=== PATIENT | male | born 1960 | race Caucasian/White ===

== ENCOUNTER → 2023-09-23 09:52 | Outpatient (REF) | payer BC, SELFPAY | LOC: RAD 09:52 | PROVIDERS: ATTENDING PHYSICIAN Family Medicine; FAMILY PHYSICIAN Family Medicine | DX: J18.9 Pneumonia, unspecified organism (principal); R05.1 Acute cough | CPT/HCPCS: 71046 ==

== ENCOUNTER → 2023-09-30 11:14 | Outpatient (REF) | payer BC, SELFPAY | LOC: HWRAD 11:14 | PROVIDERS: ATTENDING PHYSICIAN Family Medicine | DX: R93.89 Abnormal findings on diagnostic imaging of other specified body structures (principal) | CPT/HCPCS: 71260; 74177; Q9967 ==

== ENCOUNTER → 2023-11-04 07:50 | Outpatient (REF) | payer BC, SELFPAY | LOC: HWRCS 07:50 | PROVIDERS: ATTENDING PHYSICIAN Internal Medicine Cardiovascular Disease; FAMILY PHYSICIAN Family Medicine | DX: Z01.810 Encounter for preprocedural cardiovascular examination (principal) | CPT/HCPCS: 93306 ==

== ENCOUNTER → 2023-11-05 12:41 | Outpatient (REF) | payer BC, SELFPAY | LOC: RAD 12:41 | PROVIDERS: ATTENDING PHYSICIAN Surgery Vascular Surgery; FAMILY PHYSICIAN Family Medicine | DX: R29.898 Other symptoms and signs involving the musculoskeletal system (principal) | CPT/HCPCS: 93925 ==

== ENCOUNTER → 2023-11-06 07:27 | Outpatient (REF) | payer BC, SELFPAY | LOC: DHCBC/DCA 07:27 | PROVIDERS: ATTENDING PHYSICIAN Internal Medicine Cardiovascular Disease; FAMILY PHYSICIAN Family Medicine | DX: Z01.810 Encounter for preprocedural cardiovascular examination (principal) | CPT/HCPCS: 78452; 93017; A9500; J2785 ==

== ENCOUNTER 2023-12-03 06:08 | Inpatient (IN) | payer BC, SELFPAY ==
[2023-11-26 09:37] VITALS: BMI 36.9
[2023-11-26 10:03] LABS: % Basophils 1.7 % (0-2); % Eosinophils 3.9 % (0-6); % Immature Granulocytes 0.7 % (0-0.5); % Lymphocytes 20.6 % (20.5-51.1); % Monocytes 13.3 % (1.7-9.3); % Neutrophils 59.8 % (42.2-75.2); Absolute Basophils 0.2 10^3/uL (0-0.2); Absolute Eosinophils 0.4 10^3/uL (0-0.7); Absolute Immature Granulocytes 0.1 10^3/uL (0-0.05); Absolute Lymphocytes 1.9 10^3/uL (1.2-3.4); Absolute Monocytes 1.2 10^3/uL (0.1-0.6); Absolute Neutrophils 5.4 10^3/uL (1.4-6.5); Hematocrit 44.9 % (39.0-52.0); Hemoglobin 14.7 g/dL (13.0-18.0); Mean Corp Hgb Conc. 32.7 g/dL (33.0-37.0); Mean Corpuscular Hgb 27.6 pg (27.0-31.0); Mean Corpuscular Volume 84.4 fL (80.0-94.0); Mean Platelet Volume 9.7 fL (7.4-10.4); Nucleated Red Blood Cells % 0 % (-); Platelet Count 296 10^3/uL (130-400); Red Blood Cell Count 5.32 10^6/uL (4.70-6.10); Red Cell Dist. Width 13.7 % (11.5-14.5)
[2023-11-26 10:17] LABS: INR 1.03; PT 13.5 Sec (11.4-14.6)
[2023-11-26 10:18] LABS: APTT 28.2 Sec (23.4-35.0)
[2023-11-26 10:21] LABS: Blood Urea Nitrogen 22 mg/dl (9-20); Calcium 9.4 mg/dl (8.4-10.2); Carbon Dioxide 25 mmol/L (22-30); Estimated Creatinine Clearance 102 ml/min; Glucose 99 mg/dl (70-99); Potassium 4.3 mmol/L (3.5-5.1); Sodium 143 mmol/L (135-145); eGFR > 60.00
[2023-11-26 10:45] LABS: Chloride 105 mmol/L (98-107)
--- NOTE | 2023-12-02 16:40 | HP.FOC2 ---
Focused History & Physical
Chief Complaint
HPI:
Chief Complaint: Type B aortic dissection
HPI / Indication for Planned Procedure: 63-year-old male here today for planned open AAA repair with Dr. Kumar. Patient has no new symptoms or recent illness since prior office visit. No change in medications.
Relevant Past Medical History: Other (Hypertension)
Relevant Social History: Negative
Relevant Family History: Positive for (Cancer, Parkinson's)
Relevant Past Surgical History: Positive for (Orthopedic surgeries)
Medication
See Medication form for detailed medications: Yes
Medication List (including Herbals & OTC):
amlodipine 10 mg tablet 10 mg PO DAILY 11/24/23
aspirin 81 mg capsule 81 mg PO DAILY 11/24/23
lisinopril 20 mg-hydrochlorothiazide 12.5 mg tablet 1 tab PO BID 11/24/23
Medications Reviewed: Yes
Allergies and Reactions
Patient has Allergies: No
Noted Allergies and Reactions:
Allergy/AdvReac Type Severity Reaction Status Date / Time
No Known Allergies Allergy Verified 11/24/23 11:21
Pertinent Physical Exam
All Other Systems: Negative
Head/Neck: Normal
Lungs: Normal
Heart: Normal
Abdomen: Normal
Extremities: Normal
Neurological: Normal
Diagnosis / Assessment
Thoracoabdominal dissecting aortic aneurysm
Plan / Procedure
Planned open RP repair of AAA with Dr. Kumar
Anesthesia/Sedation to be done by Anesthesia Provider: Yes
[2023-12-03] VITALS (24 sets, daily range): BP systolic 71–141; BP diastolic 48–87
[2023-12-03] MEDS: PERIDEX 0.12% ORAL RINSE 15 ML PO (06:44)
[2023-12-03] MEDS: BACTROBAN NASAL 1 GRAM NASAL (06:44)
[2023-12-03] MEDS: NSS 500 IV ×2 (06:45→15:06)
--- NOTE | 2023-12-03 06:59 | W.SUR.PREOP ---
Pre-Operative Surgical Note
-
I have examined this patient prior to the performance of the scheduled procedure.
The patient's condition is unchanged from the time of the current History and
Physical and the patient is able to undergo the scheduled procedure.
As noted in my outpatient addendum - plan for RP repair abdominal aortic aneurysm (not full extent 3 thoracoabd repair). Discussed with patient on phone prior, and again with patient and his now. Felipe diagrams to facilitate their
understanding. Risks/benefits/alternatives all fully discussed. They understand all and wish to proceed.
[2023-12-03 09:31] LABS: B.E. - POC -0.1 mmol/L; Glucose - POC 152 mg/dl (70-99); HCO3 - POC 26 mmol/L (21-29); Hematocrit - POC 43 % PCV (42-52); Hemodilution- POC No; Hemoglobin Calculated - POC 14.7; Ionized Calcium - POC 1.13 mmol/L (1.12-1.27); O2 Saturation %Calculated-POC 99.3 5 (92-96); PCO2 - POC 46 mmHg (35-45); PO2 - POC 157 mmHg (80-100); Potassium - POC 4.2 mmol/L (3.6-5.0); Sodium - POC 140 mmol/L (135-145); pH - POC 7.36 (7.35-7.45)
[2023-12-03 10:19] LABS: B.E. - POC -0.6 mmol/L; Glucose - POC 189 mg/dl (70-99); HCO3 - POC 24 mmol/L (21-29); Hematocrit - POC 34 % PCV (42-52); Hemodilution- POC Yes; Hemoglobin Calculated - POC 11.5; Ionized Calcium - POC 1.06 mmol/L (1.12-1.27); Lactate - POC 1.47 mmol/L (0.36-0.75); O2 Saturation %Calculated-POC 99.3 5 (92-96); PCO2 - POC 40 mmHg (35-45); PO2 - POC 153 mmHg (80-100); Sodium - POC 132 mmol/L (135-145); pH - POC 7.39 (7.35-7.45)
[2023-12-03 10:53] LABS: B.E. - POC -3.4 mmol/L; Glucose - POC 274 mg/dl (70-99); HCO3 - POC 22 mmol/L (21-29); Hematocrit - POC 29 % PCV (42-52); Hemodilution- POC Yes; Ionized Calcium - POC 0.94 mmol/L (1.12-1.27); Lactate - POC 2.74 mmol/L (0.36-0.75); O2 Saturation %Calculated-POC 98.6 5 (92-96); PCO2 - POC 40 mmHg (35-45); PO2 - POC 123 mmHg (80-100); Potassium - POC 3.5 mmol/L (3.6-5.0); Sodium - POC 135 mmol/L (135-145); pH - POC 7.35 (7.35-7.45)
[2023-12-03 11:22] LABS: B.E. - POC -6.9 mmol/L; Glucose - POC 263 mg/dl (70-99); HCO3 - POC 22 mmol/L (21-29); Hematocrit - POC 38 % PCV (42-52); Hemodilution- POC Yes; Hemoglobin Calculated - POC 13.1; Ionized Calcium - POC 1.32 mmol/L (1.12-1.27); Lactate - POC 5.23 mmol/L (0.36-0.75); O2 Saturation %Calculated-POC 98.4 5 (92-96); PCO2 - POC 56 mmHg (35-45); PO2 - POC 140 mmHg (80-100); Potassium - POC 3.4 mmol/L (3.6-5.0); Sodium - POC 139 mmol/L (135-145)
--- NOTE | 2023-12-03 11:55 | W.SUR.POST ---
Surgical Immediate Post Op
Note
Pre Op Diagnosis: AAA
Post Op Diagnosis: same
Procedure Performed: Open RP AAA repair
Primary Surgeon: José
Secondary Surgeons: Jose De Jesus
Anesthesia: General
Estimated Blood Loss: 600cc
Fluids: see anesthesia flow sheet
Drains/Shunts: none
Specimens/Cultures: aortic thrombus
Doppler/Duplex/Angio (Y/N): Y
Complications: none
Operative Findings: see op note
[2023-12-03 12:01] LABS: B.E. - POC -9.2 mmol/L; Glucose - POC 226 mg/dl (70-99); HCO3 - POC 18 mmol/L (21-29); Hematocrit - POC 35 % PCV (42-52); Hemodilution- POC Yes; Ionized Calcium - POC 1.08 mmol/L (1.12-1.27); Lactate - POC 5.02 mmol/L (0.36-0.75); O2 Saturation %Calculated-POC 99.6 5 (92-96); PCO2 - POC 40 mmHg (35-45); PO2 - POC 216 mmHg (80-100); Potassium - POC 3.5 mmol/L (3.6-5.0); Sodium - POC 135 mmol/L (135-145); pH - POC 7.25 (7.35-7.45)
--- NOTE | 2023-12-03 12:20 | CON.INTV ---
Consultation
Consultation Request
Date/Time Consultation Requested: 12/03/2023 - 114
Date/Time Consultation Performed: 12/03/2023 - 1213
Requesting Provider: CHERYL Cardoza
Performing Provider: Josh Moreira MD
Reason for Consultation: s/p open AAA repair
Medical History
-
Chief Complaint: Elective AAA repair
History of Present Illness:
63-year-old male non-smoker with a past medical history of hypertension and dissecting aortic aneurysm who presents with elective AAA repair. Patient known to vascular surgery with Dr. Kumar with last office visit on 10/14/2023. Patient has a thoracic
abdominal aortic aneurysm in the setting of a chronic type B aortic dissection. Patient has no family history of aneurysms. It measures approximately 6.7 x 6.3 cm. The etiology of his aneurysm is likely related to chronic type B dissection.
Vascular intervention with open repair was discussed including its risks and benefits. Today he underwent open retroperitoneal abdominal aortic aneurysm repair. EBL was 600cc and there was no immediate complications. Patient was transferred to
the ICU postoperatively for further care, and bearing press machine operator services consulted for additional management/recommendations.
When I saw the patient, he was intubated on AC/CMV at 500/16/5/100% with PIP: 34 cmH2O with VTe 492 mL and breathing at 16 breaths/min. Sedated on propofol at 10mcg/kg/min. He was easily arousable, answering questions appropriately by nodding and
was able to lift his head up off the pillow. Heart rate currently 61, BP via arterial catheter line: 107/63 and saturating 100%. He is currently on iker at 60mcg/min as well as vasopressin at 0.03 units/min. He was already weaned off insulin drip.
Patient's , Danita, at bedside and all questions were answered. Of note, patient does not wear CPAP or BiPAP at home.
PMHx: Dissecting aortic aneurysm, hypertension
PSHx: Left knee surgery, right finger crush injury s/p surgical repair, left wrist crush injury s/p surgical repair (at age 11)
Past Medical History
Past Medical History: Other (Above as per HPI)
Past Surgical History: Other (Above as per HPI)
Social History
Tobacco: Non-smoker
Alcohol: None
Drug: None
Family History
Family History: Cancer (Father) and Other (Mother: Alzheimer's dementia/Parkinson disease)
Allergies / Home Medications
Allergies
Allergy/AdvReac Type Severity Reaction Status Date / Time
No Known Allergies Allergy Verified 11/24/23 11:21
Home Medications
�Medication �Instructions �Recorded �Confirmed �Last Taken �Type
amlodipine 10 mg tablet 10 mg PO DAILY 11/24/23 12/03/23 12/03/23 04:00 History
aspirin 81 mg capsule 81 mg PO DAILY 11/24/23 12/03/23 12/02/23 04:00 History
lisinopril 20 1 tab PO BID 11/24/23 12/03/23 12/03/23 04:00 History
mg-hydrochlorothiazide 12.5 mg
tablet
Review of Systems
-
Unable to Obtain full review of systems at this time due to: Patient Intubation
Vitals / Labs / Diagnostic Testing
Vital Signs
Temp Pulse Resp BP Pulse Ox
98.6 F 64 15 141/85 96
12/03/23 06:15 12/03/23 06:15 12/03/23 06:15 12/03/23 06:15 12/03/23 06:15
Diagnostic Testing:
Physical Exam
-
HEENT: Normocephalic, Anicteric and Other (thick neck)
Cardiovascular: S1/S2 and Peripheral Edema (negative)
Respiratory: Wheeze (negative), Rales (negative), Rhonchi (negative), Non-Labored Respirations and Other (Mechanical breath sounds heard bilaterally)
GI: Soft, Distended (Abdominal obesity), Non Tender, Normal Bowel Sounds and Other (Vertical incision covered with tegaderm seen on left side of abdomen)
Neurology: Tremors (negative) and Other (Sedated but easily arousable and answering questions appropriately by nodding)
Skin: Warm and Dry
General: Respiratory Distress (negative), Comfortable, Chills (negative) and Sweats (negative)
Assessment
-
Assessment: 63-year-old male non-smoker with a past medical history of hypertension and dissecting aortic aneurysm who presents with elective AAA repair. Patient known to vascular surgery with Dr. Kumar with last office visit on 10/14/2023. Patient
has a thoracic abdominal aortic aneurysm in the setting of a chronic type B aortic dissection. Patient has no family history of aneurysms. It measures approximately 6.7 x 6.3 cm. The etiology of his aneurysm is likely related to chronic type B
dissection. Vascular intervention with open repair was discussed including its risks and benefits. Today he underwent open retroperitoneal abdominal aortic aneurysm repair. EBL was 600cc and there was no immediate complications. Patient was
transferred to the ICU postoperatively for further care, and bearing press machine operator services consulted for additional management/recommendations.
Chronic conditions HEADLINE WRITER: Dissecting aortic aneurysm, hypertension
Impression:
#Abdominal aortic aneurysm due to chronic type B aortic dissection s/p open retroperitoneal AAA repair (POD #0)
#Shock - likely distributive from sedation
#Leukocytosis � likely reactive
#Metabolic acidosis with normal anion gap
#Hyperglycemia
#History of hypertension
#Abnormal CT chest with patchy opacities in the posterior RUL + posterior LLL with confluent airspace consolidation in the superior LLL
#Obesity
Plan:
Postoperative surgical intensive care unit monitoring
Continue with mechanical ventilation and perform SAT/SBT; if ABG 30 minutes later looks adequate then plan to extubate to nasal cannula
Maintain SpO2 >90-94%
prn nebulized bronchodilators - pt not currently bronchospastic
Once extubated, encourage incentive spirometry use at 10x per hour for at least 4 hrs a day
Aspiration precautions
Pain control
Wean down vasopressors as tolerated to maintain MAP>65
Once iker is <50mcg/min, DC vaso and then continue weaning down iker to off
If having difficulty weaning off pressors, then will start midodrine
Hold home anti-HTN meds for now
Neuro and vascular checks per protocol
Replete electrolytes with K>4, Mg>2
Maintain euglycemia with goal BG 140-180 with ISS moderate resistance q6hr
Vascular surgery following-correspondence and operative notes reviewed
Transfuse blood products as needed to keep Hb>7g/dL, and plt>50k (given post-operative status)
Trend serum HCO3 level and if <15 then start bicarb gtt (sterile water due to hyperglycemia)
DVT prophylaxis
Early nutrition
Early mobilization
Once patient is stabilized, would recommend non-urgent repeat CT chest without contrast to assess for resolution of his patchy opacities + confluent airspace consolidation seen on last CT chest from 09/30/2023
Critical care statement: A total of 44 minutes of critical care time was provided for this patient today. This includes management of unstable vital signs, evaluation of the patient at bedside, reviewing the patient's pertinent medical records
including radiographs, microbiology, laboratory evaluations, and discussion with primary team, consultants, pharmacy, nutrition, physical therapy, case management, charge nurse, critical care nursing, and respiratory therapy.
Data:
CXR 12/03/2023: Low lung volumes. No active pulmonary process.
CT Chest/Abd/Pelvis with IV contrast 09/30/2023:
1. Type B thoracic dissection which extends into the abdominal aorta and the left external iliac artery. There is associated aneurysmal dilatation of the distal descending thoracic aorta, abdominal aorta, and the left common iliac artery. The
abdominal aortic aneurysm measures up to 6.2 cm and the left common iliac aneurysm 5.0 cm. True lumen supplies the renal arteries, SMA, and right iliac artery. False lumen supplies the celiac axis. Both true and false lumen supply the left external
iliac artery.
2. Some patchy opacities within the posterior right upper lobe, sequela represent resolving pneumonia based upon the prior radiograph. Nonspecific confluent focus of airspace consolidation within the superior segment of the left lower lobe
abutting the descending thoracic aorta with increased attenuation.
3. Hepatic steatosis.
4. Fat-containing umbilical hernia.
[2023-12-03] MEDS: NSS 1000 IV ×2 (12:31→19:07)
[2023-12-03 12:42] LABS: Glucose - Point of Care 175 mg/dl (70-99)
[2023-12-03 12:56] LABS: INR 1.23; PT 15.5 Sec (11.4-14.6)
[2023-12-03 12:57] LABS: APTT 23.8 Sec (23.4-35.0); Hematocrit 41.4 % (39.0-52.0); Hemoglobin 13.7 g/dL (13.0-18.0); Mean Corp Hgb Conc. 33.1 g/dL (33.0-37.0); Mean Corpuscular Hgb 28.5 pg (27.0-31.0); Mean Corpuscular Volume 86.3 fL (80.0-94.0); Mean Platelet Volume 9.3 fL (7.4-10.4); Platelet Count 229 10^3/uL (130-400)
[2023-12-03 12:58] LABS: ALT (SGPT) 20 U/L (0-50); AST (SGOT) 21 U/L (17-59); Albumin 2.8 g/dl (3.5-5.0); Alkaline Phosphatase 68 U/L (38-126); Blood Urea Nitrogen 20 mg/dl (9-20); Calcium 7.7 mg/dl (8.4-10.2); Carbon Dioxide 18 mmol/L (22-30); Chloride 103 mmol/L (98-107); Direct Bilirubin 0.2 mg/dl (0.0-0.4); Estimated Creatinine Clearance 115 ml/min; Glucose 189 mg/dl (70-99); Potassium 3.9 mmol/L (3.5-5.1); Sodium 138 mmol/L (135-145); Total Bilirubin 0.4 mg/dl (0.2-1.3); Total Protein 5.2 g/dl (6.3-8.2); eGFR > 60.00
[2023-12-03 13:07] LABS: B.E. -3.9 mmol/L; HCO3 22.2 mmol/L (21-28); O2 Saturation % 99.6 % (94-98); PCO2 43 mmHg (35-48); PO2 134 mmHg (83-108); pH 7.32 (7.35-7.45)
[2023-12-03 13:09] LABS: Troponin I < 0.012 ng/ml
[2023-12-03] MEDS: OFIRMEV 100 IV ×3 (13:24→23:02)
[2023-12-03] MEDS: DIPRIVAN 100 IV (13:30)
[2023-12-03] MEDS: NEO-SYNEPHRINE 250 IV (13:34)
[2023-12-03] MEDS: DILAUDID 0.5 MG IV ×2 (13:45→19:19)
--- NOTE | 2023-12-03 13:45 | PTCARENOTE ---
Rec'd patient as a direct admit from the OR. Patient intubated with #8 ett @ 25 cm. Placed on ventilator by RT. A/C 16/500/5/100%. Pulse ox 99%. Lung sounds diminished throughout. Sedated from OR. Pupils equal and reactive; +2mm. NSR on tele
monitor. +BS (hypo). Left nare [place] sump placed to continuous suction per order. [place] draining clear/yellow urine. 160 cc's/hr. Left lateral abdominal dressing c/d/i. Neurovascular checks checked with QUALITY COMPLIANCE COORDINATOR. +DP and PT doppler pulses bilaterally.
RIJ/Cordis in place. KVO placed through Cordis, NS @ 10 mL/hr. Rec'd patient on Levophed/Vaso/Insulin gtts. Orders clarified with vascular surgery. Insulin gtt stopped. Requesting that Candido be used in placed of Levophed. Candido initiated. Weaning
Levophed as tolerared. Goal SBP 100-165. IVFs initiated as ordered.
--- NOTE | 2023-12-03 14:53 | PTCARENOTE ---
Wean initiated at 1450. Patient nodding head appropriately. MAEx4. NSR on tele monitor. Vitals stable. Currently on Candido and Vaso for BP support. Neurovascular checks unchanged.
[2023-12-03 15:38] LABS: HCO3 22.7 mmol/L (21-28); PCO2 42 mmHg (35-48); PO2 100 mmHg (83-108); pH 7.34 (7.35-7.45)
--- NOTE | 2023-12-03 15:54 | W.PN.UPDATE ---
Update Note
Progress Note Update
Pt tolerated SBT on PS 5, PEEP of 5 on 40% FiO2. Remains awake, alert and following all commands. ABG on PST shows mild metabolic acidosis with pH 7.34, pCO2 42, pO2 100 (SaO2: 99%). Pt extubated to nasal cannula. Will continue to closely
monitor.
--- NOTE | 2023-12-03 15:56 | OR.RPT ---
Operative Report
Operative Report
PROCEDURE DATE: 12/03/2023
Preoperative diagnosis:
1. Chronic type B aortic dissection.
2. Abdominal aortic aneurysm measuring over 6 cm.
3. 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
Postoperative diagnosis: Same
Procedure: Open surgical retroperitoneal repair of abdominal aortic aneurysm with 22 mm x 11 mm bifurcated Hemashield dacron graft.
Surgeon: José
Air Marshal: Lawrence Dela Cruz MD required for all aspects of procedure due to the complexity and anatomic challenges of the case.
Complications: None
Anesthesia: General
Indications for procedure:
Patient with chronic type B aortic dissection with extent 3 thoracoabdominal aortic aneurysm. However, the aneurysmal degeneration in the descending thoracic aorta and aorta in the vicinity of the diaphragm did not meet size criteria for repair.
In addition, there was an infrarenal neck of suitable size proximal to a large abdominal aortic infrarenal aneurysm. In addition the patient had a large over 5 cm left iliac artery aneurysm (common iliac). Based on all this, we felt that he be
higher risk for an extent to or extent 3 thoracoabdominal aortic aneurysm repair, and given the size measurements in the abdominal aorta and left common iliac having reached threshold sizes, we felt that infrarenal abdominal aortic aneurysm repair
was warranted without treating the proximal aorta. Risk/benefits/alternatives were all fully discussed with the patient and his family. They understood all wish to proceed.
Description of procedure:
Patient was identified brought to the operating room placed on the table in supine position. After the placement of invasive lines and catheters, and after adequate administration of anesthesia he was positioned in lateral decubitus position with
right side down. All pressure points were padded including an axillary roll, pillows between his legs. The patient was then prepped and draped in the standard surgical fashion. A standard preoperative timeout was undertaken and everybody was in
agreement the plan. A retroperitoneal type incision was made in the ninth intercostal space extending obliquely towards the midline to the level of the umbilicus but slightly to the left of midline. This was then carried through the skin
subcutaneous tissue with the electrocautery. The external oblique fascia was divided, and muscle fibers were spread in their direction and then the internal oblique was divided. Transversalis fascia was divided and then the peritoneum was exposed.
We began to sweep the peritoneal sac off of the abdominal wall in the proximal aspect of the incision site. Identified a small rent in the peritoneum which was repaired with a [id number] Vicryl suture. We continued to sweep the peritoneum of
the abdominal wall reflecting it medially. We did this until we saw the psoas muscle. Continued our sweeping bluntly of the peritoneum and the kidney was also swept medially and upward. As such the ureter and kidney were all swept together with
the peritoneal sac and reflected medially. The aorta and left common iliac artery were identified. Self-retaining retractor system was now put in place. We then dissected on the lateral and anterior surface of the aorta exposing the infrarenal
aorta. We dissected up to the level of the left renal artery which was carefully identified and circumferentially carefully dissected and a vessel loop passed around it which was double looped but not tightened. We carefully circumferentially
dissected around the aorta at that juncture and identified well posterior from this vantage point the right renal artery. Slightly cephalad to here we could identify the superior mesenteric artery, but we did not feel we needed to circumferentially
dissect this or expose the to any greater detail. There was a suitable infrarenal sewing ring or neck. Therefore we felt that a suprarenal aortic clamp would suffice. Some of the diaphragmatic crural fibers were divided off the aorta to allow
greater exposure cephalad. We then created a clamp zone in the suprarenal segment. The clamp zone was essentially between the right and the left renal artery (cephalad to the left renal artery). We then positioned an aortic clamp in this position
but did not fully clamp. Next, the left common iliac artery was noted to be aneurysmal and was mobilized from the surrounding tissue with combination of sharp and blunt technique. Tissues were inflamed around here and therefore was somewhat
challenging but we are able to do so. The iliac bifurcation on the left side was identified. The external iliac artery was carefully circumferentially dissected and vascular passed around it. The internal iliac artery was also identified and
carefully dissected taking great care to avoid injury to the slightly more posterior and to the right vein. Circumferential dissection was undertaken and Vesseloops passed around it which was double looped with diet tightened. Of note the aneurysm
extended just onto the external iliac artery, and therefore we had decided that we would likely ligate the left internal iliac artery given the depth and difficulty we would have trying to reimplant it. In addition, we would be able to preserve the
right hypogastric artery. At this point we dissected the right common iliac artery. This proved challenging due to the depth and his habitus, as well as the inflammatory nature of the tissues in the setting of an aneurysm. However we were able to
create a clamp zone on either side of the common iliac artery and a hypogastric clamp was positioned there as well. At this point we had proximal and distal control in the aorta. The patient was given an appropriate dose of heparin. Once this had
circulated for 3 minutes the right common iliac artery was clamped and the left external and internal iliac artery double looped Vesseloops were tightened. After confirmation with our anesthesiology colleagues and the administration of mannitol,
the left renal artery vessel loop had been double looped and was now tightened. We then crossclamped the aorta. An aortotomy was made using the electrocautery and this was extended with a heavy scissor to the more normal sized sewing ring we had
in the infrarenal aorta proximally. At this point the aortotomy was teed off. Thrombus was removed. We identified the dissection flap. Because we had clamped suprarenal he intentionally, this gave us a little bit of room to baffle the dissection
flap cephalad. Therefore, at this point we completely transected the aorta within this infrarenal neck. We then baffled the dissection flap. This was done with a scissor creating a V like cut in the chronic septum. Once we did this we had a nice
sewing ring proximally. Distally we open the aorta directly onto the left common iliac aneurysm. Given that the tissue was still aneurysmal at the iliac bifurcation, as noted prior we elected to ligate the internal iliac artery. Therefore we
transected the external iliac artery here. Therefore we would perform a left external iliac artery end-to-end anastomosis. The internal iliac artery was now ligated with heavy silk ties. As far as the right common iliac artery, we identified the
origin at the very end of the aneurysm sac and noted a nice ring (albeit calcified and somewhat diseased) to sew to here. We now used a 22 mm x 11 mm bifurcated Hemashield dacron graft and sewed an end-to-end proximal anastomosis between the
infrarenal aorta and the graft using a running 3-0 Prolene suture. We completed and tied down our suture line. We tested our suture line by administering saline through bulb syringe through the graft limbs. It appeared hemostatic. We therefore
then clamped the graft limbs and then released our proximal aortic clamp. We noted hemostasis along the suture line. There was an area of slightly redundant aortic tissue posteriorly that we thought may leak and therefore a single 3-0 Prolene
[id number] suture was placed to repair that. Now that we had hemostatic proximal suture line, we shifted our iliac limb clamps to the proximal extent of the iliac limbs. Next, we turned our attention to the right iliac anastomosis. The graft
limb was trimmed and beveled and we sewed an anastomosis between the graft limb and the origin of the right common iliac artery (of note we had not transected the common iliac artery off of its origin). This was done with a running 3-0 Prolene
suture. This anastomosis proved to be challenging due to the location and depth of the artery as well as the disease nature of the artery wall (although there was no stenosis). However, we were able to complete and then tie down our suture line
after having backbled the twenty[place]nine [place] artery and flushed out the graft. We then informed anesthesiology colleagues that we would be releasing flow towards the right leg. We then released our hypogastric clamp and then released our graft clamp. Thereby
restoring flow into the right iliac system. There was good pulsatile flow in the right common iliac artery and iliac bifurcation, confirmed with good Doppler signal. We noted hemostasis as well. At this point we turned our attention to the left
iliac anastomosis. The graft was trimmed and slightly beveled and an end-to-end anastomosis was fashioned between the graft limb and the left external iliac artery using a running 3-0 Prolene suture. Prior to completing and tying down our suture
line the [place]nine [place] artery was backbled and the graft limb was flushed out. Heparinized saline was instilled. We completed and tied down our suture line. Next, we informed her anesthesiology colleagues about releasing our left lower extremity graft
by releasing our clamps there. Once they are prepared we unclamped the left external iliac artery clamp and the graft limb clamp. There is excellent pulsatile flow into the left external iliac artery. Doppler again confirmed excellent flow. We
now noted hemostasis at this anastomosis as well. Doppler signal and pulsatile flow was also noted to be good in the left renal artery. At this point we are very satisfied. There was a small bleeding point on the left lateral aortic wall just
cephalad to the site of the clamp placement that have resulted from our dissection, likely a small branch. This was repaired with a 4-0 Prolene [id number] pledgeted suture. Hemostasis was now achieved. Protamine was given to reverse the
heparin, and full hemostasis was noted. At this point we are very satisfied. We irrigated and confirmed again full hemostasis. Next, the space between the ninth and 10th ribs that we had cut through was closed with a Prolene [id number]
suture to reapproximate the ribs. Next, the internal oblique/posterior fascia was closed with running 0 Vicryl suture. Anterior (external oblique) fascial layer was closed then with #1 running PDS suture. Deep dermal layers were closed with
running 2-0 Vicryl suture. Skin clips were applied. The patient tolerated the procedure well. He had palpable bilateral PT pulses upon completion. All sponge, needle, instrument counts were correct upon completion. The patient was transported
to the ICU in stable condition, still intubated with plan to be extubated in the ICU.
--- NOTE | 2023-12-03 16:08 | PTCARENOTE ---
Patient extubated at 1550. Vitals stable. Pulse ox 94% on 4Lnc. Weaning pressors as tolerated. Vaso off. Patient alert and oriented. Pain controlled. Aquacell dressing c/d/i. Neurovascular checks maintained; no changes. at bedside.
[2023-12-03] MEDS: HEPARIN 5000 UNITS SC ×2 (16:36→23:02)
--- NOTE | 2023-12-03 17:00 | PTCARENOTE ---
Around 1630, patient's BP dropped to 70/40's. Candido titrated up without improvement. BP continuing to drop; Vaso placed back on. Currently BP 109/62 on Candido 40, Vaso 0.03.
[2023-12-03] MEDS: NOVOLOG FLEXPEN-MODERATE RESISTANCE 1 UNITS SC (18:02)
[2023-12-03 18:14] LABS: Glucose - Point of Care 155 mg/dl (70-99)
[2023-12-03] MEDS: PITRESSIN 100 IV (19:08)
[2023-12-03 19:44] LABS: Hematocrit 39.2 % (39.0-52.0); Hemoglobin 13.2 g/dL (13.0-18.0)
--- NOTE | 2023-12-03 20:00 | PTCARENOTE ---
resumed care of pt laying in bed AAOx3. Pt reports left flank AAA repair site 7 pain, PRN pain medication administered as ordered. HR in the 70's in NSR with occ. PVC's on the monitor. POX 95% on 4LO2 NC. Pt reports feeling like he has runny
nose, pt assisted to blow nose. Lungs clear. Left nare [place] sump NGT to continuous suction, draining clear brown. + bowel, round obese abd. De La Rosa cath in place draining clear yellow urine. Q1 Neurovascular checks remain WNL. Palpable pulses
confirmed via doppler. Cool pale LE. Right radial A line in place and transduced. Right IJ cordis in place infusing 10ml NSS via cordis, NSS@150ml/hr, Vaso @ 0.03 units/min and Candido @ 20 mcg/min to keep SBP 100-165. Right forearm int, right hand int,
left ac int all capped. Pt repositioned per comfort. Oral care complete. Call choudhary in reach. Will continue to monitor.
[2023-12-03 20:06] LABS: Blood Urea Nitrogen 21 mg/dl (9-20); Calcium 7.8 mg/dl (8.4-10.2); Carbon Dioxide 20 mmol/L (22-30); Chloride 104 mmol/L (98-107); Estimated Creatinine Clearance 115 ml/min; Glucose 169 mg/dl (70-99); Potassium 4.7 mmol/L (3.5-5.1); Sodium 135 mmol/L (135-145); eGFR > 60.00
[2023-12-03 20:12] LABS: Troponin I < 0.012 ng/ml
--- NOTE | 2023-12-03 22:08 | PTCARENOTE ---
Vaso turned off at this time. Will see if pt can tolerate. Current SBP 125. Pt reports pain at tolerable level at this time, resting comfortably. Will continue to monitor.
[2023-12-03] MEDS: NOVOLOG FLEXPEN-MODERATE RESISTANCE SC (23:08)
[2023-12-03 23:18] LABS: Glucose - Point of Care 143 mg/dl (70-99)
[2023-12-04] VITALS (12 sets, daily range): BP systolic 87–130; BP diastolic 50–70; BMI 38.0
--- NOTE | 2023-12-04 | PTCARENOTE ---
Vaso remains off. Candido now infusing @80mcg/min to keep SBP 100-165. Pt repositioned per comfort. Pt offers no complaints at this time. Neurovascular checks remains unchanged as documented. No other changes in assessment noted at this time. Will
continue to monitor.
[2023-12-04] MEDS: NSS 1000 IV ×3 (01:40→15:04)
[2023-12-04] MEDS: DILAUDID 0.5 MG IV ×2 (01:42→15:52)
[2023-12-04] MEDS: NEO-SYNEPHRINE 250 IV (02:54)
[2023-12-04 03:51] LABS: Hematocrit 36.7 % (39.0-52.0); Hemoglobin 12.4 g/dL (13.0-18.0); Mean Corp Hgb Conc. 33.8 g/dL (33.0-37.0); Mean Corpuscular Hgb 28.9 pg (27.0-31.0); Mean Corpuscular Volume 85.5 fL (80.0-94.0); Mean Platelet Volume 9.3 fL (7.4-10.4); Platelet Count 235 10^3/uL (130-400); Red Blood Cell Count 4.29 10^6/uL (4.70-6.10); Red Cell Dist. Width 14.1 % (11.5-14.5); White Blood Cell Count 14.3 10^3/uL (4.8-10.8)
--- NOTE | 2023-12-04 04:00 | PTCARENOTE ---
Pt sleeping comfortably at this time. No changes in assessment noted. AM lab work obtained. Pt repositioned per comfort. Oral care complete. Vital signs stable. Will continue to monitor.
[2023-12-04 04:03] LABS: INR 1.21; PT 15.3 Sec (11.4-14.6)
[2023-12-04 04:04] LABS: APTT 28.8 Sec (23.4-35.0)
[2023-12-04 04:58] LABS: Blood Urea Nitrogen 22 mg/dl (9-20); Calcium 7.5 mg/dl (8.4-10.2); Carbon Dioxide 21 mmol/L (22-30); Chloride 107 mmol/L (98-107); Estimated Creatinine Clearance 115 ml/min; Glucose 124 mg/dl (70-99); Magnesium 1.9 mg/dl (1.6-2.3); Phosphorus 3.4 mg/dl (2.5-4.5); Potassium 4.3 mmol/L (3.5-5.1); Sodium 139 mmol/L (135-145); eGFR > 60.00
[2023-12-04] MEDS: NOVOLOG FLEXPEN-MODERATE RESISTANCE SC (05:27)
[2023-12-04] MEDS: OFIRMEV 100 IV (05:29)
[2023-12-04 05:39] LABS: Glucose - Point of Care 126 mg/dl (70-99)
--- NOTE | 2023-12-04 07:27 | PTCARENOTE ---
Rec'd care of patient at 0700. Patient alert and oriented. MAEx4. Only complaint is throat soreness from previously being intubated. NSR with pvcs on tele monitor. Candido and IVFs infusing through RIJ. KVO infusing via Cordis. Pulse ox 96% on 4Lnc.
+BS. Soft/tender abdomen. Abdominal dressing intact with small old drainage. East in place for critical I/O. Vascular surgery team at bedside. NGT removed. Plan to get patient oob to chair. Maintain maikel and east until pressors weaned off.
[2023-12-04 07:38] LABS: Glycohemoglobin (HgbA1c) 5.7 % (4.0-5.6)
--- NOTE | 2023-12-04 07:41 | W.PN.ANS.POP ---
Anesthesia Post Operative
- Anesthesia Post Op Note
Vital Signs Stable-See Nursing Note: Yes
Airway Patent: Yes
Adequate Pain Control: Yes
Change in Mental Status: No
Current Postoperative Nausea & Vomiting: No
Anesthesia Complications: No
General Anesthetic Recall: No
Unplanned Admission: No
Post Op Hydration Adequate: Yes
[2023-12-04] MEDS: MIRALAX TUBE (07:46)
--- NOTE | 2023-12-04 08:03 | W.PN.INTV ---
Today's Communication / Plan
Recommendations
Up OOB as tolerated
Maintain SpO2 >90-94%
Encourage incentive parameter use
Patient just weaned off of vasopressors this morning, continue to monitor hemodynamics closely and hold home antihypertensives
Continue with ICU level of care - defer downgrade to vascular surgery. Vessel Ordinary Seaman/Pulmonary service will continue to follow along while he remains in the ICU; once downgraded then we will sign off at that time.
Assessment
-
Assessment: 63-year-old male non-smoker with a past medical history of hypertension and dissecting aortic aneurysm who presents with elective AAA repair. Patient known to vascular surgery with Dr. Kumar with last office visit on 10/14/2023. Patient
has a thoracic abdominal aortic aneurysm in the setting of a chronic type B aortic dissection. Patient has no family history of aneurysms. It measures approximately 6.7 x 6.3 cm. The etiology of his aneurysm is likely related to chronic type B
dissection. Vascular intervention with open repair was discussed including its risks and benefits. Today he underwent open retroperitoneal abdominal aortic aneurysm repair. EBL was 600cc and there was no immediate complications. Patient was
transferred to the ICU postoperatively for further care, and quilt sewer services consulted for additional management/recommendations.
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
Impression:
#Abdominal aortic aneurysm due to chronic type B aortic dissection s/p open retroperitoneal AAA repair (POD #1)
#Shock - likely distributive from sedation - shock state now resolved
#Leukocytosis � likely reactive
#Metabolic acidosis with normal anion gap - now resolved
#Hyperglycemia - resolved
#History of hypertension
#Abnormal CT chest with patchy opacities in the posterior RUL + posterior LLL with confluent airspace consolidation in the superior LLL
#Obesity
Plan:
Postoperative surgical intensive care unit monitoring
Patient was successfully extubated to nasal cannula on 12/03/2023
Maintain SpO2 >90-94%
prn nebulized bronchodilators - pt not currently bronchospastic
Encourage incentive spirometry use at 10x per hour for at least 4 hrs a day
Aspiration precautions
Pain control
Vasopressors have now been weaned off as of this morning; maintain MAP>65
Hold home anti-HTN meds for now
Neuro and vascular checks per protocol
Replete electrolytes with K>4, Mg>2
Maintain euglycemia with goal BG 140-180
Vascular surgery following-correspondence and operative notes reviewed
Transfuse blood products as needed to keep Hb>7g/dL, and plt>50k (given post-operative status)
Trend serum HCO3 level
DVT prophylaxis
Early nutrition
Early mobilization
Recommend non-urgent repeat CT chest without contrast to assess for resolution of his patchy opacities + confluent airspace consolidation seen on last CT chest from 09/30/2023
Continue with ICU level of care given he was just weaned off of vasopressors. Defer downgrade to telemetry to vascular surgery. Vessel Ordinary Seaman/Pulmonary service will continue to follow along while he remains in the ICU.
Critical care statement: A total of 43 minutes of critical care time was provided for this patient today. This includes management of unstable vital signs, evaluation of the patient at bedside, reviewing the patient's pertinent medical records
including radiographs, microbiology, laboratory evaluations, and discussion with primary team, consultants, pharmacy, nutrition, physical therapy, case management, charge nurse, critical care nursing, and respiratory therapy.
Data:
CXR 12/03/2023: Low lung volumes. No active pulmonary process.
CT Chest/Abd/Pelvis with IV contrast 09/30/2023:
1. Type B thoracic dissection which extends into the abdominal aorta and the left external iliac artery. There is associated aneurysmal dilatation of the distal descending thoracic aorta, abdominal aorta, and the left common iliac artery. The
abdominal aortic aneurysm measures up to 6.2 cm and the left common iliac aneurysm 5.0 cm. True lumen supplies the renal arteries, SMA, and right iliac artery. False lumen supplies the celiac axis. Both true and false lumen supply the left external
iliac artery.
2. Some patchy opacities within the posterior right upper lobe, sequela represent resolving pneumonia based upon the prior radiograph. Nonspecific confluent focus of airspace consolidation within the superior segment of the left lower lobe
abutting the descending thoracic aorta with increased attenuation.
3. Hepatic steatosis.
4. Fat-containing umbilical hernia.
Subjective Dataa
Subjective Data
Date of Service:
Date of Service: December 04, 2023
Chief Complaint: Vessel Ordinary Seaman Follow Up
Subjective:
Patient seen and evaluated this morning. Neosynephrine gtt turned off at 10:10 AM. Vasopressin has been off since yesterday at 10 PM. He is sitting in the chair and of chest. Heart rate 85, saturating 88% on 2 L/min, and BP 120/73. He has no
complaints. Right IJ cordis in place. He denies chest pain, SOB, headache, nausea, fevers or chills.
Review of Systems
General: Other (Negative unless mentioned above)
Objective Data
Data Reviewed
Vital Signs / I&O / Oxygen:
Vital Signs
Temp Pulse Resp BP Pulse Ox
98.8 F 77 23 125/57 93
12/04/23 07:50 12/04/23 09:00 12/04/23 09:00 12/04/23 08:00 12/04/23 09:00
Intake and Output
12/03/23 12/04/23 12/05/23
06:59 06:59 06:59
Intake Total 3773.0 / 3957.0 546 / 546
Output Total 2085 / 2130 215 / 215
Balance 1688.0 / 1827.0 331 / 331
SaO2 [A/C] 100
SaO2 93
Nasal Cannula flow liters per 2
minute
Physical Exam
General: Respiratory Distress (negative), Comfortable, Chills (negative) and Sweats (negative)
HEENT: Normocephalic, Anicteric, Other (thick neck) and Other (R-IJ cordis in place)
Cardiovascular: S1-S2 and Peripheral Edema (negative)
Respiratory: Wheeze (negative), Crackles (negative), Rhonchi (negative) and Non-Labored Respirations
GI: Soft, Distended (abdominal obesity), Non Tender and Normal Bowel Sounds
Neurology: AO x 3 and Tremors (negative)
Skin: Warm, Dry, Cyanosis (negative) and Jaundice (negative)
Labs/Micro/Reports
Lab Data
12/04/23 03:44
12/04/23 03:44
Laboratory Results
12/03/23 12/03/23 12/03/23
12:38 12:55 15:24
PT 15.5 H
INR 1.23
APTT 23.8
pH 7.32 L 7.34 L
pCO2 43 42
pO2 134 H 100
HCO3 22.2 22.7
O2 Delivery Level
12/04/23
03:44
PT 15.3 H
INR 1.21
APTT 28.8
pH
pCO2
pO2
HCO3
O2 Delivery Level
--- NOTE | 2023-12-04 08:04 | W.PN.VS ---
Addendum entered and electronically signed by Fady Kumar MD 12/04/23 10:27:
Seen and examined with CHARLIE Mancia and CHARLIE Marie. Agree with findings as noted below. Seen earlier this a.m., this is a late entry. Patient was doing very well. He is without actually significant complaints. No significant abdominal pain. His only
complaint was slight throat discomfort from the prior ET tube. No nausea. Vitals and intake/outtake all reviewed. Good urine output, minimal NG tube drainage. On his exam his abdomen is soft, nondistended, nontender. The left flank dressing
clean dry and intact. No hematoma noted. Feet are both pink and warm with easily palpable 2+ PT pulses. Labs all reviewed. Plan/NG tube discontinued on rounds by us. Wean pressors to off. Remove arterial line once pressors off. Continue
n.p.o. and fluids for now. Okay for ice chips. Will reassess later today regarding possible advancing diet and removal of De La Rosa catheter. Out of bed to chair.
Original Note:
Today's Communication / Plan
-
Seen and assessed with Dr. Kumar
Assessment/Plan
-
POD #1 Open surgical retroperitoneal repair of abdominal aortic aneurysm with 22 mm x 11 mm bifurcated Hemashield dacron graft.
Plan:
-Out of bed to chair
-NG tube DC'd
-Ice chips, if tolerates this could increase to clears later
-Wean candido
-Keep De La Rosa and Cordis for today
-Continue IV fluids at 150
-Remain in ICU today
Subjective Data
-
Date of Service: December 04, 2023
Patient seen at bedside this a.m. with Dr. Kumar. Doing well overall patient denies pain at the surgical site. Only complaint is a sore throat. NG tube put out less than 100, DC'd tube at bedside. Candido infusing
Objective Data
-
Vital Signs
Temp Pulse Resp BP Pulse Ox
98.8 F 70 19 118/61 96
12/04/23 07:50 12/04/23 07:30 12/04/23 07:30 12/04/23 06:00 12/04/23 07:30
Intake and Output
12/03/23 12/04/23 12/05/23
06:59 06:59 06:59
Intake Total 3773.0 / 3957.0 184 184
Output Total 2084 / 2130
Balance 1688.0 / 1827.0 139 / 139
Intake:
IV fluids (Total) 3473.0 / 3657.0
Cordis 170 / 180
Candido 294 / 318
Norepinephrine 71.4 / 71.4
Nss 1,000 ml @ 150 mls/hr IV . 2850 / 3000 150 / 150
[id number] [facility] Rx#:[id number]
Propofol 6.6 / 6.6
Vasopressin 81 / 81
IV piggybacks 300 / 300
Amount instilled into GI Tube ( 0 / 0
Total)
[place] Sump 0 / 0
Output:
Gastrointestinal tube output ( 100 / 100
Total)
[place] Sump 100 / 100
Urine, De La Rosa 1984
Lab Results
12/04/23 03:44
12/04/23 03:44
Calcium 7.5 mg/dl (8.4-10.2) L 12/04/23 03:44
Phosphorus 3.4 mg/dl (2.5-4.5) 12/04/23 03:44
Magnesium 1.9 mg/dl (1.6-2.3) 12/04/23 03:44
Total Bilirubin 0.4 mg/dl (0.2-1.3) 12/03/23 12:38
Direct Bilirubin 0.2 mg/dl (0.0-0.4) 12/03/23 12:38
AST 21 U/L (17-59) 12/03/23 12:38
ALT 20 U/L (0-50) 12/03/23 12:38
Alkaline Phosphatase 68 U/L (38-126) 12/03/23 12:38
Total Protein 5.2 g/dl (6.3-8.2) L 12/03/23 12:38
Albumin 2.8 g/dl (3.5-5.0) L 12/03/23 12:38
Physical Exam
-
AAOx3
No tachypnea on 2 L nasal cannula
No tachycardia
Cordis site clean dry and intact
Abdomen soft, nontender
Surgical site dressing clean, dry, intact. No drainage noted. No ecchymosis
Bilateral feet warm, pink
[2023-12-04] MEDS: HEPARIN 5000 UNITS SC ×3 (08:36→23:29)
--- NOTE | 2023-12-04 09:06 | PTCARENOTE ---
Patient assisted oob to chair. Resting comfortably. Vitals stable. Weaning Candido as tolerated.
[2023-12-04] MEDS: DILAUDID 0.25 MG IV (09:19)
--- NOTE | 2023-12-04 10:43 | PTCARENOTE ---
Candido weaned off at 1010. Vitals stable.
--- NOTE | 2023-12-04 12:14 | PTCARENOTE ---
Addendum entered by Shantell De Souza RN 12/04/23 12:29:
Order for 500 cc bolus obtained.
Original Note:
Around 1205, patient assisted in repositioning from laying in chair to sitting up. BP dropped to 80/50's. Quick to recover. BP currently 120/70's. Urine output noted to be decreasing over the past couple hours. Roughly 25-30 cc's/hr. Vascular
surgery ICE SKATING TEACHER notified. No other changes.
[2023-12-04] MEDS: NSS 500 IV ×2 (12:31→23:28)
--- NOTE | 2023-12-04 13:23 | PTCARENOTE ---
Patient assisted back to bed. Tolerated 4.5 hours in chair.
--- NOTE | 2023-12-04 13:34 | PTCARENOTE ---
Attempted to wean to RA. Pulse ox down to 89%. Placed back on 2L nc. IS provided. Educated on proper use.
--- NOTE | 2023-12-04 15:29 | CM ---
CM met with patient in room. Patient confirmed demographics. Patient lives independently with . Patient had a history of VN (many years ago). Patient denies history of SNF.
Patient is active with his PCP. Patient uses [facility] for medication services.
--- NOTE | 2023-12-04 16:06 | PTCARENOTE ---
Urine output increased post 500 cc bolus. 50-75 cc's an hour. Vitals remain stable. Patient tolerating ice chips. No other changes in assessment.
--- NOTE | 2023-12-04 20:30 | PTCARENOTE ---
Resumed care of pt this evening. Received pt on IV fluids infusing via rt IJ central line w/ cordis in place. Pt is A&Ox3, can move all 4 extremities, and can make needs known. Pt is in NSR w/ PVCs on tele monitor, has trace GA edema, and palpable
pedal pulses bilaterally. Pt on 2L of O2 satting at 95% pulse ox. Pt's respirations are shallow. On auscultation pt lungs sound diminished at the bases bilaterally w/ an expiratory wheeze. Pt's abdomen is round, obese, and tender. BS are hypoactive.
De La Rosa cath in place draining negro colored urine. Pt's left abdominal surgical aquacell dressing is intact w/ small amount of old drainage noted.
[2023-12-04] MEDS: MORPHINE SULFATE 4 MG IV (20:43)
--- NOTE | 2023-12-04 23:00 | PTCARENOTE ---
This RN administered morphine dose for 7 out of 10 pain at surgical site per order.
[2023-12-05] VITALS (15 sets, daily range): BP systolic 104–154; BP diastolic 53–94; PULSE 98; O2SAT 92; BMI 38.8
--- NOTE | 2023-12-05 02:00 | PTCARENOTE ---
Upon reassessment, post pain assessment, pt resting comfortably.
[2023-12-05] MEDS: NSS 1000 IV (02:14)
[2023-12-05] MEDS: MORPHINE SULFATE 4 MG IV (04:48)
[2023-12-05 05:25] LABS: Hematocrit 32.5 % (39.0-52.0); Hemoglobin 10.8 g/dL (13.0-18.0); Mean Corp Hgb Conc. 33.2 g/dL (33.0-37.0); Mean Corpuscular Hgb 28.9 pg (27.0-31.0); Mean Corpuscular Volume 86.9 fL (80.0-94.0); Mean Platelet Volume 9.6 fL (7.4-10.4); Platelet Count 188 10^3/uL (130-400); Red Blood Cell Count 3.74 10^6/uL (4.70-6.10); Red Cell Dist. Width 14.1 % (11.5-14.5); White Blood Cell Count 13.2 10^3/uL (4.8-10.8)
[2023-12-05 05:47] LABS: Blood Urea Nitrogen 21 mg/dl (9-20); Calcium 7.3 mg/dl (8.4-10.2); Carbon Dioxide 23 mmol/L (22-30); Chloride 106 mmol/L (98-107); Estimated Creatinine Clearance > 125 ml/min; Glucose 109 mg/dl (70-99); Potassium 3.9 mmol/L (3.5-5.1); Sodium 139 mmol/L (135-145); eGFR > 60.00
--- NOTE | 2023-12-05 08:02 | W.PN.INTV ---
Today's Communication / Plan
Recommendations
Up OOB as tolerated
Maintain SpO2 >90-94%
Encourage incentive spirometer use
Check procal in AM and if >0.5 then start ABx
PT/OT
Continue with ICU level of care - defer downgrade to vascular surgery. Social Services Director/Pulmonary service will continue to follow along while he remains in the ICU; once downgraded then we will sign off at that time.
Assessment
-
Assessment: 63-year-old male non-smoker with a past medical history of hypertension and dissecting aortic aneurysm who presents with elective AAA repair. Patient known to vascular surgery with Dr. Kumar with last office visit on 10/14/2023. Patient
has a thoracic abdominal aortic aneurysm in the setting of a chronic type B aortic dissection. Patient has no family history of aneurysms. It measures approximately 6.7 x 6.3 cm. The etiology of his aneurysm is likely related to chronic type B
dissection. Vascular intervention with open repair was discussed including its risks and benefits. Today he underwent open retroperitoneal abdominal aortic aneurysm repair. EBL was 600cc and there was no immediate complications. Patient was
transferred to the ICU postoperatively for further care, and level vial curvature gauger services consulted for additional management/recommendations.
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
Impression:
#Abdominal aortic aneurysm due to chronic type B aortic dissection s/p open retroperitoneal AAA repair (POD #2)
#Shock - likely distributive from sedation - shock state now resolved
#Leukocytosis � likely reactive
#Metabolic acidosis with normal anion gap - now resolved
#Hyperglycemia - resolved
#History of hypertension
#Abnormal CT chest with patchy opacities in the posterior RUL + posterior LLL with confluent airspace consolidation in the superior LLL
#Obesity
Plan:
Postoperative surgical intensive care unit monitoring
Patient was successfully extubated to nasal cannula on 12/03/2023
Maintain SpO2 >90-94%
prn nebulized bronchodilators - pt not currently bronchospastic
Encourage incentive spirometry use at 10x per hour for at least 4 hrs a day
Aspiration precautions
Pain control
Vasopressors have now been weaned off as of AM of 12/04/2023; maintain MAP>65
Resume anti-HTN meds and stagger to avoid hypotension
Given the retrocardiac opacification seen on CXR today, encourage patient to get up OOB and encourage incentive spirometer use. Given his leukocytosis, check procalcitonin and if >0.5 and start antibiotics
- Of note, he clinically has no signs of pneumonia with no sputum production, cough or SOB
Neuro and vascular checks per protocol
Replete electrolytes with K>4, Mg>2
Maintain euglycemia with goal BG 140-180
Vascular surgery following-correspondence and operative notes reviewed
Transfuse blood products as needed to keep Hb>7g/dL, and plt>50k (given post-operative status)
DVT prophylaxis
Early nutrition
Early mobilization
Recommend non-urgent repeat CT chest without contrast to assess for resolution of his patchy opacities + confluent airspace consolidation seen on last CT chest from 09/30/2023
Continue with ICU level of care given he was just weaned off of vasopressors. Defer downgrade to telemetry to vascular surgery. Social Services Director/Pulmonary service will continue to follow along while he remains in the ICU.
Total time spent today was 75 minutes for this encounter. Time includes reviewing laboratory test/imaging results, reviewing pertinent medical records, obtaining and reviewing medical history, performing an appropriate exam, ordering medications,
tests and procedures. Time also includes documentation of this encounter, coordinating patient care and communicating with other healthcare professionals. Total time does not include separately billed tests performed on this date of service.
Data:
CXR 12/03/2023: Low lung volumes. No active pulmonary process.
CXR 12/05/2023:
1. Bibasilar linear opacities, most suggestive of subsegmental atelectasis.
2. Haziness of the left hemidiaphragm, likely reflective of left lower lobe airspace disease and/or small left pleural effusion. Consider PA and lateral views when possible.
3. Mild cardiomegaly.
CT Chest/Abd/Pelvis with IV contrast 09/30/2023:
1. Type B thoracic dissection which extends into the abdominal aorta and the left external iliac artery. There is associated aneurysmal dilatation of the distal descending thoracic aorta, abdominal aorta, and the left common iliac artery. The
abdominal aortic aneurysm measures up to 6.2 cm and the left common iliac aneurysm 5.0 cm. True lumen supplies the renal arteries, SMA, and right iliac artery. False lumen supplies the celiac axis. Both true and false lumen supply the left external
iliac artery.
2. Some patchy opacities within the posterior right upper lobe, sequela represent resolving pneumonia based upon the prior radiograph. Nonspecific confluent focus of airspace consolidation within the superior segment of the left lower lobe
abutting the descending thoracic aorta with increased attenuation.
3. Hepatic steatosis.
4. Fat-containing umbilical hernia.
Subjective Dataa
Subjective Data
Date of Service:
Date of Service: December 05, 2023
Chief Complaint: Social Services Director Follow Up
Subjective:
Patient seen and evaluated this morning. No acute events reported overnight. Heart rate 79, BP 126/77 and saturating 94% on 2 L/min. He has minimal complaints, denying SOB, cough, chest pain, abdominal pain, nausea, fevers or chills. Afebrile
overnight.
Review of Systems
General: Other (Negative unless mentioned above)
Objective Data
Data Reviewed
Vital Signs / I&O / Oxygen:
Vital Signs
Temp Pulse Resp BP Pulse Ox
99.8 F 83 21 125/63 94
12/05/23 08:15 12/05/23 08:00 12/05/23 08:00 12/05/23 08:00 12/05/23 08:00
Intake and Output
12/04/23 12/05/23 12/06/23
06:59 06:59 06:59
Intake Total 3773.0 / 3957.0 4652 / 4742 180 / 180
Output Total 2084 / 2129 1187 / 1187
Balance 1688.0 / 1827.0 3465 / 3555 180 / 180
SaO2 [A/C] 100
SaO2 94
Nasal Cannula flow liters per 2
minute
Physical Exam
General: Respiratory Distress (negative), Comfortable, Chills (negative) and Sweats (negative)
HEENT: Normocephalic, Anicteric and Other (thick neck)
Cardiovascular: S1-S2 and Peripheral Edema (negative)
Respiratory: Wheeze (negative), Crackles (negative), Rhonchi (negative) and Non-Labored Respirations
GI: Soft, Distended (abdominal obesity), Non Tender and Normal Bowel Sounds
Neurology: AO x 3 and Tremors (negative)
Skin: Warm, Dry, Cyanosis (negative) and Jaundice (negative)
Labs/Micro/Reports
Lab Data
12/05/23 05:03
12/05/23 05:03
[2023-12-05] MEDS: HEPARIN 5000 UNITS SC ×3 (08:05→22:40)
--- NOTE | 2023-12-05 08:17 | W.PN.VS ---
Addendum entered and electronically signed by Michael De La Rosa III, MD 12/05/23 15:03:
This patient was seen and examined with CHERYL Goyal. I agree with the history and physical exam as well as the assessment and plan.
Signed:
Michael De La Rosa III, MD
[facility] Vascular Surgery
[phone] (mgxn)
Original Note:
Today's Communication / Plan
-
See below.
Assessment/Plan
-
POD #2 Open surgical retroperitoneal repair of abdominal aortic aneurysm with 22 mm x 11 mm bifurcated Hemashield dacron graft.
Plan:
-Out of bed to chair with continued progression of ambulation as tolerated
-Discontinue IV fluids
-Advance diet to regular
-Physical therapy eval and treatment
-Given positive fluids of roughly 3 L per LUCIANO documentation and bilateral lower extremity edema we will give 20 mg IV Lasix dosing
- Discontinue De La Rosa catheter
- Discontinue Cordis
-Patient currently tolerating p.o. intake will transition pain medication from IV to p.o.
-Continue to encourage incentive spirometry
Subjective Data
-
Date of Service: December 05, 2023
Patient seen and examined at bedside, reports continued adequate postoperative pain management. Denies nausea, vomiting, fever, and chills. Reports tolerating clear liquid diet and passing flatus.
Objective Data
-
Vital Signs
Temp Pulse Resp BP Pulse Ox
99.8 F 80 20 110/53 94
12/05/23 08:15 12/05/23 06:15 12/05/23 06:15 12/05/23 06:00 12/05/23 06:15
Intake and Output
12/04/23 12/05/23 12/06/23
06:59 06:59 06:59
Intake Total 3773.0 / 3957.0 7362 / 7342 180 / 180
Output Total 2084 / 0 1187 / 1187
Balance 1688.0 / 1827.0 3465 / 3555 180 / 180
Intake:
Oral fluids 1080 / 1080
IV fluids (Total) 3473.0 / 3657.0 3572 / 3662 180 / 180
BOLUS 500 / 500
Cordis 170 / 180 240 / 250 20 / 20
Candido 294 / 318 72 / 72
Norepinephrine 71.4 / 71.4
Nss 1,000 ml @ 150 mls/hr IV . 2850 / 3000 1800 / 1800
Q6H40M [facility]IR Rx#:[id number]
Nss 1,000 ml @ 80 mls/hr IV . 960 / 1040 160 / 160
[id number] EMIR Rx#:[id number]
Propofol 6.6 / 6.6
Vasopressin 81 / 81
IV piggybacks 300 / 300
Amount instilled into GI Tube ( 0 / 0
Total)
[place] S[place] 0 / 0
Output:
Gastrointestinal tube output ( 100 / 100
Total)
[place] Sump 100 / 100
Urine, De La Rosa 1983 1187
Lab Results
12/05/23 05:03
12/05/23 05:03
Calcium 7.3 mg/dl (8.4-10.2) L 12/05/23 05:03
Phosphorus 3.4 mg/dl (2.5-4.5) 12/04/23 03:44
Magnesium 1.9 mg/dl (1.6-2.3) 12/04/23 03:44
Total Bilirubin 0.4 mg/dl (0.2-1.3) 12/03/23 12:38
Direct Bilirubin 0.2 mg/dl (0.0-0.4) 12/03/23 12:38
AST 21 U/L (17-59) 12/03/23 12:38
ALT 20 U/L (0-50) 12/03/23 12:38
Alkaline Phosphatase 68 U/L (38-126) 12/03/23 12:38
Total Protein 5.2 g/dl (6.3-8.2) L 12/03/23 12:38
Albumin 2.8 g/dl (3.5-5.0) L 12/03/23 12:38
Physical Exam
-
AAOx3
No tachypnea on room air
No tachycardia
Cordis site clean dry and intact
Abdomen soft, nontender
Surgical site dressing clean, dry, intact. No ecchymosis
Bilateral feet warm, pink, palpable right PT and left DP, trace bilateral lower extremity edema
[2023-12-05] MEDS: DILAUDID 0.5 MG IV (08:32)
[2023-12-05] MEDS: LASIX 20 MG IV (08:32)
[2023-12-05] MEDS: COLACE 100 MG PO (10:39)
[2023-12-05] MEDS: MIRALAX 17 GRAMS TUBE (10:39)
[2023-12-05] MEDS: TYLENOL 650 MG PO ×2 (11:36→16:11)
[2023-12-05] MEDS: DILAUDID 2 MG PO ×2 (11:37→18:45)
[2023-12-05] MEDS: ZESTRIL PO (12:02)
[2023-12-05] MEDS: NORVASC PO (12:02)
--- NOTE | 2023-12-05 13:30 | PTCARENOTE ---
PT hat brief run of svt while up in chair. went to check on pt, he was unaware. reported just using the IS. Ashley Marie as well as assistant branch manager aware. EKG ordered and completed. Labs drawn and sent as ordered once pt assisted back to bed at his
request. Pt tolerated well. No complaints when back in bed.
[2023-12-05 14:07] LABS: Hematocrit 34.1 % (39.0-52.0); Hemoglobin 11.2 g/dL (13.0-18.0)
[2023-12-05 14:20] LABS: ALT (SGPT) 17 U/L (0-50); AST (SGOT) 23 U/L (17-59); Albumin 2.8 g/dl (3.5-5.0); Alkaline Phosphatase 58 U/L (38-126); Blood Urea Nitrogen 20 mg/dl (9-20); Calcium 7.8 mg/dl (8.4-10.2); Carbon Dioxide 24 mmol/L (22-30); Chloride 102 mmol/L (98-107); Estimated Creatinine Clearance 105 ml/min; Glucose 153 mg/dl (70-99); Magnesium 2.1 mg/dl (1.6-2.3); Sodium 137 mmol/L (135-145); Total Bilirubin 0.3 mg/dl (0.2-1.3); Total Protein 5.2 g/dl (6.3-8.2); eGFR > 60.00
[2023-12-05] MEDS: CALCIUM GLUCONATE 100 IV (16:10)
--- NOTE | 2023-12-05 16:30 | PTCARENOTE ---
systems reviewed. no new changes. pt tolerating diet. no need to void since cath removed. continue to encourage IS. otherwise no changes
--- NOTE | 2023-12-05 19:12 | PTCARENOTE ---
pt requested oob to chair. mild assistance to get up using walker. tolerated well. medicated for pain as charted. at bedside.
[2023-12-05] MEDS: TYLENOL PO (21:47)
[2023-12-05] MEDS: COLACE PO (21:47)
[2023-12-05] MEDS: DILAUDID 4 MG PO (22:40)
[2023-12-06] VITALS (10 sets, daily range): BP systolic 107–164; BP diastolic 55–83; PULSE 87; O2SAT 95
[2023-12-06] MEDS: TYLENOL PO ×2 (00:19→04:49)
[2023-12-06 04:54] LABS: Hematocrit 30.7 % (39.0-52.0); Hemoglobin 10.4 g/dL (13.0-18.0); Mean Corp Hgb Conc. 33.9 g/dL (33.0-37.0); Mean Corpuscular Hgb 28.2 pg (27.0-31.0); Mean Corpuscular Volume 83.2 fL (80.0-94.0); Mean Platelet Volume 9.7 fL (7.4-10.4); Platelet Count 191 10^3/uL (130-400); Red Blood Cell Count 3.69 10^6/uL (4.70-6.10); Red Cell Dist. Width 14.1 % (11.5-14.5); White Blood Cell Count 12.5 10^3/uL (4.8-10.8)
[2023-12-06 05:12] LABS: Blood Urea Nitrogen 20 mg/dl (9-20); Calcium 7.8 mg/dl (8.4-10.2); Carbon Dioxide 29 mmol/L (22-30); Chloride 102 mmol/L (98-107); Estimated Creatinine Clearance > 125 ml/min; Glucose 100 mg/dl (70-99); Magnesium 2.2 mg/dl (1.6-2.3); Potassium 3.8 mmol/L (3.5-5.1); Sodium 135 mmol/L (135-145); Triglycerides 100 mg/dl (10-149); eGFR > 60.00
[2023-12-06 05:40] LABS: Procalcitonin 0.11 ng/ml (0.0-0.25)
[2023-12-06] MEDS: DILAUDID 4 MG PO (05:52)
[2023-12-06] MEDS: DILAUDID 2 MG PO ×2 (07:45→20:22)
[2023-12-06] MEDS: MIRALAX 17 GRAMS TUBE (07:46)
[2023-12-06] MEDS: NORVASC 5 MG PO (07:46)
[2023-12-06] MEDS: COLACE 100 MG PO ×2 (07:46→20:10)
[2023-12-06] MEDS: HEPARIN 5000 UNITS SC ×2 (07:46→15:26)
[2023-12-06] MEDS: TYLENOL 650 MG PO ×4 (07:46→20:10)
[2023-12-06] MEDS: ZESTRIL 10 MG PO (07:46)
--- NOTE | 2023-12-06 08:00 | PTCARENOTE ---
07:00 patient seen in bed, does not appear to be in distress or SOB. On 2L oxygen via nasal cannula. Left upper abdominal pain dull like 7 out 10 on pain level scale. AAO x3. Neuro check WNL. Vascular check WNL (see assessment ). BP via Left upper
arm 150/74 MAP 90 SR 82 . POX 94%/2L. RA 87% with in minutes of been on RA while in bed. will encourage Is. Lungs diminished no cough no SOB. Abdomen rounds, Hyperactive Bowel sounds. No BM since admission . Miralex adm. Voiding in urinal without
difficulties and discomfort. will encourage Fluid intake. All peripheral lines capped flushed dressing intake. Tolerating diet well. Dilaudid 2mg PO adm for pain control. Pt's at bedside . Call choudhary with reach
--- NOTE | 2023-12-06 08:22 | W.PN.INTV ---
Today's Communication / Plan
Recommendations
Up OOB as tolerated
Maintain SpO2 >90-94%
Encourage incentive spirometer use
Procal negative --> no need for ABx
PT/OT
Outpatient follow-up will be arranged to discuss sleep apnea testing.
VBG in AM to assure pCO2 and pH are stable given rising serum HCO3 level
Patient is stable for downgrade out of ICU per vascular surgery. Content Strategy Lead/Pulmonary service will now sign off. Please reconsult if there are any additional questions/concerns, or if patient's respiratory status deteriorates.
Assessment
-
Assessment: 63-year-old male non-smoker with a past medical history of hypertension and dissecting aortic aneurysm who presents with elective AAA repair. Patient known to vascular surgery with Dr. Kumar with last office visit on 10/14/2023. Patient
has a thoracic abdominal aortic aneurysm in the setting of a chronic type B aortic dissection. Patient has no family history of aneurysms. It measures approximately 6.7 x 6.3 cm. The etiology of his aneurysm is likely related to chronic type B
dissection. Vascular intervention with open repair was discussed including its risks and benefits. Today he underwent open retroperitoneal abdominal aortic aneurysm repair. EBL was 600cc and there was no immediate complications. Patient was
transferred to the ICU postoperatively for further care, and educational adviser services consulted for additional management/recommendations.
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
Impression:
#Abdominal aortic aneurysm due to chronic type B aortic dissection s/p open retroperitoneal AAA repair (POD #3)
#Shock - likely distributive from sedation - shock state now resolved
#Leukocytosis � likely reactive
#Metabolic acidosis with normal anion gap - now resolved
#Hyperglycemia - resolved
#History of hypertension
#Abnormal CT chest with patchy opacities in the posterior RUL + posterior LLL with confluent airspace consolidation in the superior LLL
#Obesity
Plan:
Postoperative surgical intensive care unit monitoring
Patient was successfully extubated to nasal cannula on 12/03/2023
Maintain SpO2 >90-94%
prn nebulized bronchodilators - pt not currently bronchospastic
Encourage incentive spirometry use at 10x per hour for at least 4 hrs a day
Aspiration precautions
Pain control
Given his elevated serum bicarbonate level, check VBG tomorrow morning to assess for hypercapnia.
- Given his thick neck and hypertension, he does have risk factors for sleep disordered breathing. Outpatient follow-up will be arranged to discuss sleep apnea testing.
Vasopressors have now been weaned off as of AM of 12/04/2023; maintain MAP>65
Resume anti-HTN meds and stagger to avoid hypotension
Given the retrocardiac opacification seen on CXR today, encourage patient to get up OOB and encourage incentive spirometer use. Given his leukocytosis, procalcitonin checked and is 0.11 --> no need for ABx
- Of note, he clinically has no signs of pneumonia with no sputum production, cough or SOB
Neuro and vascular checks per protocol
Replete electrolytes with K>4, Mg>2
Maintain euglycemia with goal BG 140-180
Vascular surgery following-correspondence and operative notes reviewed
Transfuse blood products as needed to keep Hb>7g/dL, and plt>50k (given post-operative status)
- Received 1 U PRBC on 12/03/2023
DVT prophylaxis
Early nutrition
Early mobilization
Recommend non-urgent repeat CT chest without contrast to assess for resolution of his patchy opacities + confluent airspace consolidation seen on last CT chest from 09/30/2023
Patient is stable for downgrade out of ICU per vascular surgery. Content Strategy Lead/Pulmonary service will now sign off. Thank you for allowing us to be involved in the care of this patient. Please reconsult if there are any additional
questions/concerns, or if patient's respiratory status deteriorates.
Total time spent today was 35 minutes for this encounter. Time includes reviewing laboratory test/imaging results, reviewing pertinent medical records, obtaining and reviewing medical history, performing an appropriate exam, ordering medications,
tests and procedures. Time also includes documentation of this encounter, coordinating patient care and communicating with other healthcare professionals. Total time does not include separately billed tests performed on this date of service.
Data:
CXR 12/03/2023: Low lung volumes. No active pulmonary process.
CXR 12/05/2023:
1. Bibasilar linear opacities, most suggestive of subsegmental atelectasis.
2. Haziness of the left hemidiaphragm, likely reflective of left lower lobe airspace disease and/or small left pleural effusion. Consider PA and lateral views when possible.
3. Mild cardiomegaly.
CXR 12/06/2023: Borderline cardiomegaly; the lungs are clear
CT Chest/Abd/Pelvis with IV contrast 09/30/2023:
1. Type B thoracic dissection which extends into the abdominal aorta and the left external iliac artery. There is associated aneurysmal dilatation of the distal descending thoracic aorta, abdominal aorta, and the left common iliac artery. The
abdominal aortic aneurysm measures up to 6.2 cm and the left common iliac aneurysm 5.0 cm. True lumen supplies the renal arteries, SMA, and right iliac artery. False lumen supplies the celiac axis. Both true and false lumen supply the left external
iliac artery.
2. Some patchy opacities within the posterior right upper lobe, sequela represent resolving pneumonia based upon the prior radiograph. Nonspecific confluent focus of airspace consolidation within the superior segment of the left lower lobe
abutting the descending thoracic aorta with increased attenuation.
3. Hepatic steatosis.
4. Fat-containing umbilical hernia.
Subjective Dataa
Subjective Data
Date of Service:
Date of Service: December 06, 2023
Chief Complaint: Content Strategy Lead Follow Up
Subjective:
Patient was seen and evaluated today at bedside. Heart rate 77, saturating 95% on 3 L/min, and BP 109/64. Afebrile overnight. Patient's at bedside and all questions were answered. Patient has no complaints, denying chest pain, SOB, URENA,
abdominal pain, nausea, fevers or chills.
Review of Systems
General: Other (Negative unless mentioned above)
Objective Data
Data Reviewed
Vital Signs / I&O / Oxygen:
Vital Signs
Temp Pulse Resp BP Pulse Ox
98.2 F 99 24 164/83 93
12/06/23 07:00 12/06/23 08:00 12/06/23 08:00 12/06/23 08:00 12/06/23 08:00
Intake and Output
12/05/23 12/06/23 12/07/23
06:59 06:59 06:59
Intake Total 4652 / 4742 190 / 190
Output Total 1187 / 1187 1670 / 1670
Balance 3465 / 3555 -1480 / -1480
SaO2 [A/C] 100
SaO2 93
Nasal Cannula flow liters per 2
minute
Physical Exam
General: Respiratory Distress (negative), Comfortable, Chills (negative) and Sweats (negative)
HEENT: Normocephalic, Anicteric and Other (thick neck)
Cardiovascular: S1-S2 and Peripheral Edema (negative)
Respiratory: Clear, Wheeze (negative), Crackles (negative), Rhonchi (negative) and Non-Labored Respirations
GI: Soft, Distended (abdominal obesity), Non Tender and Normal Bowel Sounds
Neurology: AO x 3 and Tremors (negative)
Skin: Warm, Dry, Cyanosis (negative) and Jaundice (negative)
Labs/Micro/Reports
Lab Data
12/06/23 04:20
12/06/23 04:20
--- NOTE | 2023-12-06 08:33 | W.PN.VS ---
Today's Communication / Plan
-
Seen and assessed with Dr. Richard
Assessment/Plan
-
POD #3 Open surgical retroperitoneal repair of abdominal aortic aneurysm with 22 mm x 11 mm bifurcated Hemashield dacron graft.
Plan:
-PT/OT/ambulation
-Encourage patient to drink fluids urinary output 25 cc an hour overnight
-Continue to encourage incentive spirometry, wean O2 off as tolerated. Chest x-ray with clear lungs this a.m.
-Patient working on bowel movement this morning, passing gas
Subjective Data
-
Date of Service: December 06, 2023
Patient seen at bedside this a.m. with his present. No events overnight. No complaints at this time. Patient is eating breakfast. He states he was able to move around a bit yesterday and is looking forward to walking more today
Objective Data
-
Vital Signs
Temp Pulse Resp BP Pulse Ox
98.2 F 92 21 150/74 96
12/06/23 07:00 12/06/23 07:46 12/06/23 06:00 12/06/23 07:46 12/06/23 06:00
Intake and Output
12/05/23 12/06/23 12/07/23
06:59 06:59 06:59
Intake Total 4652 / 4742 190 / 190
Output Total 1187 / 1187 1670 / 1670
Balance 3465 / 3555 -1480 / -1480
Intake:
Oral fluids 1080 / 1080
IV fluids (Total) 3572 / 3662 190 / 190
BOLUS 500 / 500
Cordis 240 / 250 30 / 30
Candido 72 / 72
Nss 1,000 ml @ 150 mls/hr IV . 1800 / 1800
Q6H40M [facility] Rx#:[id number]
Nss 1,000 ml @ 80 mls/hr IV . 960 / 1040 160 / 160
W26S47M [facility]IR Rx#:[id number]
Output:
Urine, De La Rosa 1187 / 1187 1350 / 1350
Urine, Voided 320 / 320
Lab Results
12/06/23 04:20
12/06/23 04:20
Calcium 7.8 mg/dl (8.4-10.2) L 12/06/23 04:20
Phosphorus 3.4 mg/dl (2.5-4.5) 12/04/23 03:44
Magnesium 2.2 mg/dl (1.6-2.3) 12/06/23 04:20
Total Bilirubin 0.3 mg/dl (0.2-1.3) 12/05/23 13:58
Direct Bilirubin 0.2 mg/dl (0.0-0.4) 12/03/23 12:38
AST 23 U/L (17-59) 12/05/23 13:58
ALT 17 U/L (0-50) 12/05/23 13:58
Alkaline Phosphatase 58 U/L (38-126) 12/05/23 13:58
Total Protein 5.2 g/dl (6.3-8.2) L 12/05/23 13:58
Albumin 2.8 g/dl (3.5-5.0) L 12/05/23 13:58
Physical Exam
-
AAOx3
No tachypnea on 2 L nasal cannula
No tachycardia
Abdomen soft, nontender
Surgical site clean, dry, intact. No ecchymosis. [place] well-approximated with no drainage
Bilateral feet warm, pink, palpable right PT and left DP
[2023-12-06] MEDS: ASPIR LOW (ENTERIC COATED) 81 MG PO (10:24)
--- NOTE | 2023-12-06 13:55 | PTCARENOTE ---
patient transfer to via w/c. Prior to transfer not changed to morning assessment noted. Tylenol adm per routine schedule report given
[2023-12-06] MEDS: ORETIC 12.5 MG PO (17:44)
[2023-12-07] MEDS: HEPARIN 5000 UNITS SC ×3 (00:46→16:37)
[2023-12-07] MEDS: TYLENOL PO (00:55)
[2023-12-07 03:27] VITALS: BP 119/69
[2023-12-07] MEDS: DILAUDID 2 MG PO ×2 (03:33→16:34)
[2023-12-07] MEDS: TYLENOL 650 MG PO ×5 (03:33→21:25)
[2023-12-07 05:50] LABS: Venous Blood Gas B.E. 4.6 mmol/L (-4 to +4); Venous Blood Gas HCO3 29.8 mmol/L (22-27); Venous Blood Gas O2 Sat % 98.2 %; Venous Blood Gas pCO2 46 mmHg (35-48); Venous Blood Gas pH 7.42 (7.32-7.43); Venous Blood Gas pO2 80 mmHg (30-50)
[2023-12-07 05:59] LABS: Hematocrit 29.6 % (39.0-52.0); Mean Corp Hgb Conc. 33.8 g/dL (33.0-37.0); Mean Corpuscular Volume 82.9 fL (80.0-94.0); Mean Platelet Volume 9.9 fL (7.4-10.4); Platelet Count 255 10^3/uL (130-400); Red Blood Cell Count 3.57 10^6/uL (4.70-6.10); Red Cell Dist. Width 13.8 % (11.5-14.5); White Blood Cell Count 12.1 10^3/uL (4.8-10.8)
[2023-12-07 06:20] LABS: Blood Urea Nitrogen 24 mg/dl (9-20); Carbon Dioxide 29 mmol/L (22-30); Chloride 99 mmol/L (98-107); Estimated Creatinine Clearance 105 ml/min; Glucose 108 mg/dl (70-99); Magnesium 2.3 mg/dl (1.6-2.3); Phosphorus 3.6 mg/dl (2.5-4.5); Potassium 3.9 mmol/L (3.5-5.1); Sodium 134 mmol/L (135-145); eGFR > 60.00
[2023-12-07 07:10] VITALS: BP 103/62
[2023-12-07] MEDS: MIRALAX 17 GRAMS TUBE (07:54)
[2023-12-07] MEDS: ORETIC PO (07:58)
[2023-12-07] MEDS: ASPIR LOW (ENTERIC COATED) 81 MG PO (07:59)
[2023-12-07] MEDS: ZESTRIL PO (07:59)
[2023-12-07] MEDS: COLACE 100 MG PO ×2 (08:00→21:25)
[2023-12-07] MEDS: NORVASC PO (08:00)
[2023-12-07 11:30] VITALS: BP 128/74
--- NOTE | 2023-12-07 12:07 | W.PN.VS ---
Today's Communication / Plan
-
ambualte
Assessment/Plan
-
POD #4 Open surgical retroperitoneal repair of abdominal aortic aneurysm with 22 mm x 11 mm bifurcated Hemashield dacron graft.
Plan:
-PT/OT/ambulation
-Encourage patient to drink fluids urinary output 25 cc an hour overnight
-awaiting BM.
-DC tmrw, pt more comfortable with this
Subjective Data
-
Date of Service: December 07, 2023
Pt seen and examined at bedside. Vitals and labs reviewed. Tolerating PO diet. No BM. + Flatus. Ambulating
Objective Data
-
Vital Signs
Temp Pulse Resp BP Pulse Ox
98.6 F 89 18 128/74 92
12/07/23 11:30 12/07/23 11:30 12/07/23 11:30 12/07/23 11:30 12/07/23 11:30
Intake and Output
12/06/23 12/07/23 12/08/23
06:59 06:59 06:59
Intake Total 190 / 190 600 / 600
Output Total 1670 / 1670 350 / 350
Balance -1480 / -1480 250 / 250
Intake:
Oral fluids 600 / 600
IV fluids (Total) 190 / 190
Cordis
Nss 1,000 ml @ 80 mls/hr IV . 160 / 160
[id number] EMIR Rx#:[id number]
Output:
Urine, De La Rosa 1350 / 1350
Urine, Voided 320 / 320 350 / 350
Lab Results
12/07/23 05:43
12/07/23 05:43
Calcium 8.0 mg/dl (8.4-10.2) L 12/07/23 05:43
Phosphorus 3.6 mg/dl (2.5-4.5) 12/07/23 05:43
Magnesium 2.3 mg/dl (1.6-2.3) 12/07/23 05:43
Total Bilirubin 0.3 mg/dl (0.2-1.3) 12/05/23 13:58
Direct Bilirubin 0.2 mg/dl (0.0-0.4) 12/03/23 12:38
AST 23 U/L (17-59) 12/05/23 13:58
ALT 17 U/L (0-50) 12/05/23 13:58
Alkaline Phosphatase 58 U/L (38-126) 12/05/23 13:58
Total Protein 5.2 g/dl (6.3-8.2) L 12/05/23 13:58
Albumin 2.8 g/dl (3.5-5.0) L 12/05/23 13:58
Physical Exam
-
Gen: NAD, AOX3
Pulm: non labored breathing
Cards: RRR
Abd: soft, nt, nd; RP incision C/D/I
Ext: warm and well perfused
[2023-12-07 15:15] VITALS: BP 114/73
[2023-12-07 19:20] VITALS: BP 113/69
[2023-12-07] MEDS: DILAUDID 4 MG PO (21:52)
[2023-12-07 22:35] LABS: Glucose - Point of Care 110 mg/dl (70-99)
[2023-12-07 23:16] VITALS: BP 122/72
[2023-12-08] MEDS: HEPARIN 5000 UNITS SC ×3 (00:33→15:00)
[2023-12-08] MEDS: TYLENOL 650 MG PO ×4 (00:33→15:00)
[2023-12-08 03:20] VITALS: BP 112/74
[2023-12-08] MEDS: TYLENOL PO (03:26)
[2023-12-08 06:43] LABS: Hematocrit 28.4 % (39.0-52.0); Hemoglobin 9.4 g/dL (13.0-18.0); Mean Corp Hgb Conc. 33.1 g/dL (33.0-37.0); Mean Corpuscular Hgb 28.4 pg (27.0-31.0); Mean Corpuscular Volume 85.8 fL (80.0-94.0); Platelet Count 300 10^3/uL (130-400); Red Blood Cell Count 3.31 10^6/uL (4.70-6.10); White Blood Cell Count 11.4 10^3/uL (4.8-10.8)
[2023-12-08 07:19] LABS: Blood Urea Nitrogen 22 mg/dl (9-20); Calcium 7.8 mg/dl (8.4-10.2); Carbon Dioxide 29 mmol/L (22-30); Chloride 97 mmol/L (98-107); Estimated Creatinine Clearance 118 ml/min; Glucose 95 mg/dl (70-99); Magnesium 2.3 mg/dl (1.6-2.3); Potassium 4.2 mmol/L (3.5-5.1); Sodium 135 mmol/L (135-145); eGFR > 60.00
--- NOTE | 2023-12-08 07:42 | W.PN.VS ---
Today's Communication / Plan
-
See plan below for today 12/08/2023.
Assessment/Plan
-
POD #5 Open surgical retroperitoneal repair of abdominal aortic aneurysm with 22 mm x 11 mm bifurcated Hemashield dacron graft.
Plan:
-PT/OT/ambulation
-Likely discharge home. Check physical therapy notes to make sure okay for discharge home versus rehab.
-
Total Time Spent with Patient (in minutes): 10
Subjective Data
-
Date of Service: December 08, 2023
Patient without any complaints this morning. Sitting up in a chair. Feeling well. Notes no abdominal pain.
Objective Data
-
Vital Signs
Temp Pulse Resp BP Pulse Ox
98.5 F 81 16 112/74 93
12/08/23 03:20 12/08/23 03:20 12/08/23 03:20 12/08/23 03:20 12/08/23 03:20
Intake and Output
12/07/23 12/08/23 12/09/23
06:59 06:59 06:59
Intake Total 600 / 600 1080 / 1080
Output Total 350 / 350 275 / 275
Balance 250 / 250 805 / 805
Intake:
Oral fluids 600 / 600 1080 / 1080
Output:
Urine, Voided 350 / 350 275 / 275
Other:
Number of approximated MODERATE 3
amounts of urine
Number of approximated LARGE 1
amounts of urine
Lab Results
12/08/23 04:47
12/08/23 04:47
Calcium 7.8 mg/dl (8.4-10.2) L 12/08/23 04:47
Phosphorus 3.6 mg/dl (2.5-4.5) 12/07/23 05:43
Magnesium 2.3 mg/dl (1.6-2.3) 12/08/23 04:47
Total Bilirubin 0.3 mg/dl (0.2-1.3) 12/05/23 13:58
Direct Bilirubin 0.2 mg/dl (0.0-0.4) 12/03/23 12:38
AST 23 U/L (17-59) 12/05/23 13:58
ALT 17 U/L (0-50) 12/05/23 13:58
Alkaline Phosphatase 58 U/L (38-126) 12/05/23 13:58
Total Protein 5.2 g/dl (6.3-8.2) L 12/05/23 13:58
Albumin 2.8 g/dl (3.5-5.0) L 12/05/23 13:58
Physical Exam
-
Afebrile.
Awake and alert.
Left flank/abdomen incision clean dry and intact. No hematoma.
Feet are both pink and warm and well-perfused.
Labs reviewed.
[2023-12-08 08:00] VITALS: BP 127/78
[2023-12-08] MEDS: NORVASC 5 MG PO (08:15)
[2023-12-08] MEDS: ZESTRIL 10 MG PO (08:16)
[2023-12-08] MEDS: ORETIC 12.5 MG PO (08:16)
[2023-12-08] MEDS: ASPIR LOW (ENTERIC COATED) 81 MG PO (08:16)
[2023-12-08] MEDS: COLACE 100 MG PO (08:16)
[2023-12-08] MEDS: MIRALAX 17 GRAMS TUBE (08:17)
[2023-12-08] MEDS: DILAUDID 4 MG PO ×2 (08:21→14:58)
[2023-12-08 09:25] VITALS: BP 105/67; PULSE 89; O2SAT 92
[2023-12-08 09:35] VITALS: BP 105/67; PULSE 76; O2SAT 92
--- NOTE | 2023-12-08 10:00 | W.DS.TRANS ---
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
-
Discharge Instructions:
Discharge Diagnosis/Procedures Open AAA repair
Diet As tolerated
Activity No strenuous activity
Driving Restrictions Not until seen by your Dr
Bathing Restrictions OK to Shower
Wound Care You do not need to cover your abdominal incision
staple sites, they can remain open to air. Do
not submerge incision in pool, hot tub, or bath.
It is okay to shower, following shower pat
incision dry gently. Do not place lotions,
creams, or ointments over surgical incision.
Your julianna will be removed in your follow-up
office appointment.
Instructions:
Stand-Alone Forms: DC Instr - Vascular OR
Changes to Home Medications: Yes
Discharge Medications:
DC Medications w/original date entered in [employer]
amlodipine 10 mg tablet 10 mg PO DAILY Blood Pressure 11/24/23
aspirin 81 mg capsule 81 mg PO DAILY Blood Clot Prevention/Tx 11/24/23
lisinopril 20 mg-hydrochlorothiazide 12.5 mg tablet 1 tab PO BID Blood Pressure 11/24/23
hydromorphone 2 mg tablet 2 mg PO Q6HPRN PRN moderate-severe pain #10 tabs 12/06/23
Home Medication Changes
Added:
hydromorphone 2 mg tablet 2 mg PO Q6HPRN PRN moderate-severe pain #10 tabs 12/06/23
Pending Results: No
--- NOTE | 2023-12-08 10:20 | CM ---
Pt for discharge today
Met with pt
Reports will have family support at home -
to transport home
PT/OT [facility] - HH
Discussed with pt - no preference
TT sent to [facility] for home health needs
Plan -anticipate home with [facility]
--- NOTE | 2023-12-08 10:23 | CM ---
Pt medically ready per provider
LM with Arturo'pamela Sosa, Ovidio Galo and Jason regarding bed availability
Will need updated OT eval
Will need auth
Plan - SNF when bed and auth obtained
--- NOTE | 2023-12-08 10:47 | VNURNOTE ---
Home Health Liaison met with patient at bedside to discuss [facility] nurse/therapy, visits, schedule and homebound status. Patient is agreeable and understands that visits at home will be 2-3 x per week to assess and teach medical management. [facility]
brochure provided with contact information. Patient is aware that [facility] will contact them for start of care in 1-2 days after discharge from .
[facility] referral completed in [facility].
[2023-12-08 11:27] VITALS: BP 111/63
[2023-12-08 15:37] VITALS: BP 127/69
== END 2023-12-08 16:26 | disposition home health service (06) | DRG 270 ==
LOC: 2 SOUTH 06:08
PROVIDERS: Nurse Practitioner; Nurse Practitioner Acute Care; Nurse Practitioner Family; Nurse Practitioner Primary Care; ADMITTING PHYSICIAN Surgery Vascular Surgery; CONSULT PHYSICIAN Internal Medicine Critical Care Medicine; FAMILY PHYSICIAN Family Medicine
PROC: 04V00DZ Restriction of Abdominal Aorta with Intraluminal Device, Open Approach (ICD-10-PCS; 2023-12-03)
PROC: 30233N1 Transfusion of Nonautologous Red Blood Cells into Peripheral Vein, Percutaneous Approach (ICD-10-PCS; 2023-12-03)
DX: I71.43 Infrarenal abdominal aortic aneurysm, without rupture (principal); R57.8 Other shock; E87.20 Acidosis, unspecified; I71.02 Dissection of abdominal aorta; I72.3 Aneurysm of iliac artery; I71.23 Aneurysm of the descending thoracic aorta, without rupture; I71.60 Thoracoabdominal aortic aneurysm, without rupture, unspecified; I10 Essential (primary) hypertension; E66.9 Obesity, unspecified; Z68.38 Body mass index [BMI] 38.0-38.9, adult; D72.829 Elevated white blood cell count, unspecified; R73.9 Hyperglycemia, unspecified; R91.8 Other nonspecific abnormal finding of lung field; Z79.82 Long term (current) use of aspirin; Z79.899 Other long term (current) drug therapy
CPT/HCPCS: 88304; 35102; 36415; 71045; 80048; 80053; 80076; 82805; 82962; 83036; 83735; 84100; 84145; 84478; 84484; 85014; 85018; 85025; 85027; 85610; 85730; 86850; 86900; 86901; 86920; 86927; 93005; 94002; 97116; 97162; 97167; 97530; 97535; C1768; P9016

== ENCOUNTER 2023-12-16 11:26 | Emergency (ER) | payer BC, SELFPAY ==
[2023-12-16 11:30] VITALS: BP 116/63
--- NOTE | 2023-12-16 11:40 | ED.GENMED ---
ED Provider Triage
-
Patient seen by provider in Triage?: Seen in Triage
Attestation: A medical screening examination has been initiated by a qualified medical provider. Based on the assessment performed at this time, it has been determined that an emergent medical condition may exist and the patient has been informed
that further medical evaluation and possible additional diagnostic testing may be needed.
HPI: 63-year-old male presents for evaluation of persistent wound drainage after open AAA repair performed last week. Sent to the ED by vascular surgery evaluation of infection, request to obtain CT angiogram of chest abdomen pelvis
GENERAL: Alert , in no apparent distress
EYE: No visual abnormalities.
NECK: Trachea midline
ENT: No visible abnormalities.
LUNGS: No acute respiratory distress
NEUROLOGICAL: Alert and oriented
SKIN: Skin intact. No visible changes.
MUSCULOSKELETAL: Moving extremities normally
PSYCH: Normal and appropriate interaction.
A/P: Concern for postoperative infection, will obtain labs and CTA of the chest abdomen pelvis per request of vascular
This is a medical evaluation conducted in person to initiate diagnostic evaluation and provide initial therapeutics. Please see further documentation by the treating clinician.
History of Present Illness
General
Chief Complaint: Post Operative Problem(s)
Time Seen by Provider: 12/16/23 14:20
Past History
Past History
ED Past Medical History: HTN
ED Past Surgical History: Orthopedic
Social History
Tobacco: Non-smoker
Personal:
Living: with family
Employment: Employed
Course
Orders/Labs/Results
Orders:
Orders
12/16/23 11:35
CT Chest/abd/pelvis Angio W/wo Urgent
Comment:
Reason For Exam: post AAA repair wound discharge
12/16/23 11:47
Complete Blood Count/With Diff Urgent
Comprehensive Metabolic Panel Urgent
12/16/23 14:35
PT/INR [Prothrombin Time] Urgent
12/16/23 14:36
CeFAZolin 2 GRAM [Ancef] 2 grams in 10 ml IV NOW
Abnormal Lab Results
12/16/23 12/16/23
11:47 14:35
WBC 16.7 H 10^3/uL
(4.8-10.8)
RBC 3.58 L 10^6/uL
(4.70-6.10)
Hgb 9.4 L g/dL
(13.0-18.0)
Hct 29.8 L %
(39.0-52.0)
MCH 26.3 L pg
(27.0-31.0)
MCHC 31.5 L g/dL
(33.0-37.0)
RDW 15.4 H %
(11.5-14.5)
Plt Count 869 H 10^3/uL
(130-400)
Abs Immat Gran (auto) 0.2 H 10^3/uL
(0-0.05)
Absolute Neuts (auto) 12.2 H 10^3/uL
(1.4-6.5)
Absolute Monos (auto) 2.2 H 10^3/uL
(0.1-0.6)
Immature Gran % 1.3 H %
(0-0.5)
Lymphocytes % 9.0 L %
(20.5-51.1)
Monocytes % 13.3 H %
(1.7-9.3)
PT 15.9 H Sec
(11.4-14.6)
Chloride 97 L mmol/L
(98-107)
Glucose 108 H mg/dl
(70-99)
Albumin 3.3 L g/dl
(3.5-5.0)
12/16/23 11:47
12/16/23 11:47
Vital Signs
Initial and Last Documented VS:
Initial Vital Signs
Temp Pulse Resp BP Pulse Ox
98.3 F 86 18 116/63 97
12/16/23 11:30 12/16/23 11:30 12/16/23 11:30 12/16/23 11:30 12/16/23 11:30
Last Documented Vital Signs
Temp Pulse Resp BP Pulse Ox
99.9 F 100 18 133/79 92
12/16/23 15:30 12/16/23 15:30 12/16/23 15:30 12/16/23 15:30 12/16/23 15:30
ED Attending Note
-
Portions of this chart may have been created with voice recognition software.� Occasional wrong word or��sound alike� substitutions may have occurred due to the inherent limitations of voice recognition software.
Discharge Plan
Departure
Patient Disposition: Home (Routine Discharge)
Date of Disposition: 12/16/23
Time of Disposition: 14:56
Patient with high blood pressure during this ER visit?: No
Discharge Problem:
Postoperative hematoma, Cellulitis
Instructions: Bleeding After Surgery, Cellulitis (Skin Infection), Adult ED
Prescriptions:
New
cephalexin 500 mg tablet
500 mg PO QID 10 Days Qty: 40 0RF
No Action
lisinopril-hydrochlorothiazide 20-12.5 mg Tablet
1 tab PO BID
amlodipine 10 mg Tablet
10 mg PO DAILY
hydromorphone 2 mg Tablet
2 mg PO Q6HPRN PRN (Reason: moderate-severe pain) Qty: 10 0RF
acetaminophen [Tylenol] 325 mg Tablet
650 mg PO QIDPRN PRN (Reason: mild pain)
aspirin 81 mg Tablet,Delayed Release (Dr/Ec)
81 mg PO DAILY
Referrals:
Yolanda Vilchis MD [Family Provider] -
Fady Kumar MD [Active] - 12/23/23 11:00 am
Activity Restrictions/Additional Instructions:
Thank you for visiting the Emergency Department at [facility].
1. Please schedule a follow up appointment as directed. Call first thing tomorrow morning to make an appointment.
2. If indicated, please take your medications as instructed and indicated on discharge paperwork.
3. If any of your symptoms do not improve, or persist, or become more severe within 6-12 hours, please return to the emergency department for further care.
4. Please return to the emergency department if you develop a headache, neck pain/stiffness, fever greater than 100.4F, chest pain, shortness of breath, persistent nausea, vomiting, slurred speech, difficulty walking, numbness/tingling, weakness,
signs of infection or any other symptoms that are worrisome to you.
Please call [phone] if you have any questions.
Interventions
Interventions:
*Risk Screen - Suicide Last Done: 12/16/23 11:30
*General Assessment Last Done: 12/16/23 14:45
*Neglect/Abuse Screening Last Done: 12/16/23 14:28
ED- Fall Risk Assessment Last Done: 12/16/23 14:31
*ED COVID-19 Vaccine History Last Done: 12/16/23 11:30
*Nursing Disposition Last Done: 12/16/23 15:30
ED-Skin Assessment Last Done: 12/16/23 14:44
Discharge Date and Time
Discharge Date/Time: 12/16/23 15:31
Print Language: GREENLANDIC
[2023-12-16 11:55] LABS: % Basophils 0.8 % (0-2); % Eosinophils 2.9 % (0-6); % Immature Granulocytes 1.3 % (0-0.5); % Monocytes 13.3 % (1.7-9.3); % Neutrophils 72.7 % (42.2-75.2); Absolute Basophils 0.1 10^3/uL (0-0.2); Absolute Eosinophils 0.5 10^3/uL (0-0.7); Absolute Immature Granulocytes 0.2 10^3/uL (0-0.05); Absolute Lymphocytes 1.5 10^3/uL (1.2-3.4); Absolute Monocytes 2.2 10^3/uL (0.1-0.6); Absolute Neutrophils 12.2 10^3/uL (1.4-6.5); Hematocrit 29.8 % (39.0-52.0); Hemoglobin 9.4 g/dL (13.0-18.0); Mean Corp Hgb Conc. 31.5 g/dL (33.0-37.0); Mean Corpuscular Hgb 26.3 pg (27.0-31.0); Mean Corpuscular Volume 83.2 fL (80.0-94.0); Mean Platelet Volume 8.4 fL (7.4-10.4); Nucleated Red Blood Cells % 0 % (-); Platelet Count 869 10^3/uL (130-400); Red Blood Cell Count 3.58 10^6/uL (4.70-6.10); Red Cell Dist. Width 15.4 % (11.5-14.5); White Blood Cell Count 16.7 10^3/uL (4.8-10.8)
[2023-12-16 12:09] LABS: ALT (SGPT) 23 U/L (0-50); AST (SGOT) 22 U/L (17-59); Albumin 3.3 g/dl (3.5-5.0); Alkaline Phosphatase 81 U/L (38-126); Blood Urea Nitrogen 20 mg/dl (9-20); Calcium 9.1 mg/dl (8.4-10.2); Carbon Dioxide 29 mmol/L (22-30); Chloride 97 mmol/L (98-107); Glucose 108 mg/dl (70-99); Potassium 5.1 mmol/L (3.5-5.1); Sodium 136 mmol/L (135-145); Total Bilirubin 0.5 mg/dl (0.2-1.3); Total Protein 6.5 g/dl (6.3-8.2); eGFR > 60.00
[2023-12-16 14:25] VITALS: BP 132/76
[2023-12-16 14:27] VITALS: BMI 42.6
[2023-12-16 14:30] VITALS: BP 132/76
[2023-12-16 14:52] LABS: INR 1.29; PT 15.9 Sec (11.4-14.6)
[2023-12-16] MEDS: ANCEF 10 IV (14:57)
--- NOTE | 2023-12-16 14:57 | W.PN.UPDATE ---
Addendum entered and electronically signed by CHERYL Goyal 12/16/23 15:07:
Additionally CT scan was reviewed with attending over phone along with plan, Dr. Fady Kumar.
Original Note:
Update Note
Progress Note Update
Patient seen earlier today in our vascular surgery office, sent to ED with concern for surgical site seroma/cellulitis. CTA demonstrates collection at surgical incision site, roughly 5 julianna removed from distal aspect of ABD incision with noted
serous drainage. IV antibiotics provided while in the ED, recommend continuing p.o. antibiotics. Will have patient follow-up in our vascular surgery office in 1 week, instructed patient to call vascular office sooner if he develops fever, chills,
nausea, vomiting, worsening erythema or warmth to surgical site, and or increased drainage. Patient and family verbalized understanding. Plan reviewed with attending Dr. Fady Kumar who agrees, and with ED provider Dr. Gonsales.
--- NOTE | 2023-12-16 15:06 | ED.GENMED ---
Addendum entered and electronically signed by Patrice Ambrocio PA-C 12/17/23 10:04:
Attestation: A medical screening examination has been initiated by a qualified medical provider. Based on the assessment performed at this time, it has been determined that an emergent medical condition may exist and the patient has been informed
that further medical evaluation and possible additional diagnostic testing may be needed.
HPI: 63-year-old male presents for evaluation of persistent wound drainage after open AAA repair performed last week. Sent to the ED by vascular surgery evaluation of infection, request to obtain CT angiogram of chest abdomen pelvis
GENERAL: Alert , in no apparent distress
EYE: No visual abnormalities.
NECK: Trachea midline
ENT: No visible abnormalities.
LUNGS: No acute respiratory distress
NEUROLOGICAL: Alert and oriented
SKIN: Skin intact. No visible changes.
MUSCULOSKELETAL: Moving extremities normally
PSYCH: Normal and appropriate interaction.
A/P: Concern for postoperative infection, will obtain labs and CTA of the chest abdomen pelvis per request of vascular
This is a medical evaluation conducted in person to initiate diagnostic evaluation and provide initial therapeutics. Please see further documentation by the treating clinician.
Original Note:
History of Present Illness
General
Chief Complaint: Post Operative Problem(s)
Source: patient
Exam Limitations: none
Time Seen by Provider: 12/16/23 14:20
Nursing documentation reviewed up to this point in time: agreed with
History of Present Illness
History of Present Illness:
63-year-old male with past medical history of hypertension, chronic type B aortic dissection, AAA status post repair who presents to the emergency room referred by vascular surgeon for evaluation of bleeding and drainage from surgical incision.
Patient had open repair of AAA via retroperitoneal approach on 12/03/[address] Kumar. He has a large left lateral abdomen/flank incision. He says that over the past week he has noticed some drainage from the margins of the incision�initially it
was a clear to yellow serous drainage but over the past few days started to become more bloody. He has also had some erythema around the incision. He was referred to the ER for evaluation. He has not had any fevers or chills. He denies any
abdominal pain. He denies any other complaints.
Past History
Past History
ED Past Medical History: HTN
ED Past Surgical History: Orthopedic
Social History
Tobacco: Non-smoker
Personal:
Living: with family
Employment: Employed
Review of Systems
Review of Systems
All Other Systems: ROS reviewed and negative except as documented in HPI and ROS
Constitutional: Denies fever or chills
Respiratory: Denies trouble breathing
Cardiac: Denies chest pain
ABD/GI: Denies abdominal pain
Skin: Reports other (Redness and drainage from surgical incision)
Neurological: Denies dizzy or headache
Phy Exam
Physical Exam
Physical Exam:
General: Awake, alert, oriented x3; no acute distress
Head: Normocephalic, atraumatic
Eyes: Conjunctiva normal
Throat: Airway intact, handling secretions
Neck: Trachea midline
Lungs: Clear to auscultation bilaterally, no wheezing, rales, rhonchi
Heart: Regular rate and rhythm, no murmurs, gallops, or rubs
Abd: Soft, non distended, large left lateral abdomen/flank incision with julianna in place�there is some faint erythema extending towards the umbilicus along the superior medial margin of the incision as well as some erythema inferior to the incision
around the midpoint; there is no induration or fluctuance; at the medial margin of the incision (approximately the last 3-5 julianna) there is some serosanguineous drainage but no purulent discharge; minimal incisional tenderness
Neuro: No gross deficits
Skin: As above
Extremities: Trace bilateral lower extremity edema, equal pulses in all extremities
Scores
Heart Failure Risk
Heart Failure Risk Score: Not Applicable
Heart Score for Chest Pain Patients
STEMI patient?: Not applicable
Withdrawal Assessment of Alcohol
Withdrawal Assessment Completed?: Not applicable
Course
Orders/Labs/Results
Orders:
Orders
12/16/23 11:35
CT Chest/abd/pelvis Angio W/wo Urgent
Comment:
Reason For Exam: post AAA repair wound discharge
12/16/23 11:47
Complete Blood Count/With Diff Urgent
Comprehensive Metabolic Panel Urgent
12/16/23 14:35
Type And Crossmatch Urgent
PT/INR [Prothrombin Time] Urgent
12/16/23 14:36
CeFAZolin 2 GRAM [Ancef] 2 grams in 10 ml IV NOW
Abnormal Lab Results
12/16/23 12/16/23
11:47 14:35
WBC 16.7 H 10^3/uL
(4.8-10.8)
RBC 3.58 L 10^6/uL
(4.70-6.10)
Hgb 9.4 L g/dL
(13.0-18.0)
Hct 29.8 L %
(39.0-52.0)
MCH 26.3 L pg
(27.0-31.0)
MCHC 31.5 L g/dL
(33.0-37.0)
RDW 15.4 H %
(11.5-14.5)
Plt Count 869 H 10^3/uL
(130-400)
Abs Immat Gran (auto) 0.2 H 10^3/uL
(0-0.05)
Absolute Neuts (auto) 12.2 H 10^3/uL
(1.4-6.5)
Absolute Monos (auto) 2.2 H 10^3/uL
(0.1-0.6)
Immature Gran % 1.3 H %
(0-0.5)
Lymphocytes % 9.0 L %
(20.5-51.1)
Monocytes % 13.3 H %
(1.7-9.3)
PT 15.9 H Sec
(11.4-14.6)
Chloride 97 L mmol/L
(98-107)
Glucose 108 H mg/dl
(70-99)
Albumin 3.3 L g/dl
(3.5-5.0)
12/16/23 11:47
12/16/23 11:47
Vital Signs
Initial and Last Documented VS:
Initial Vital Signs
Temp Pulse Resp BP Pulse Ox
36.8 C 86 18 116/63 97
12/16/23 11:30 12/16/23 11:30 12/16/23 11:30 12/16/23 11:30 12/16/23 11:30
Last Documented Vital Signs
Temp Pulse Resp BP Pulse Ox
36.8 C 86 30 132/76 91
12/16/23 11:30 12/16/23 14:30 12/16/23 14:30 12/16/23 14:30 12/16/23 14:43
MDM/Problems Addressed
Differential Diagnosis Includes:
Cellulitis/abscess, seroma, hematoma
MDM/Problems Addressed:
63-year-old male who had recent AAA repair presents for evaluation of some incisional drainage and some slight redness. Vitals and exam as above. Vascular surgery called ahead requesting patient receive CTA chest/abdomen/pelvis as well as basic
labs.
Labs reviewed: CBC shows leukocytosis to 16.7 as well as thrombocytosis likely elevated in the setting of recent operation. He has stable anemia with a hemoglobin of 9.4. CMP no clinically significant abnormalities. CTA chest/abdomen/pelvis
reviewed with radiology as well as vascular surgery�there is a low-density fluid collection surrounding the aortic graft likely postoperative hematoma versus seroma; there is no extravasation of dye. Vascular surgery came to bedside, removed
julianna near the medial margin of the incision to allow for some drainage. Dressing applied. Recommended starting on antibiotics�will give a dose of Ancef here and started on p.o. cephalosporin. They have scheduled follow-up with the patient in
the office. Patient very happy with this plan. Spoke about return precautions all questions answered.
*Radiology
Radiology exam reviewed: radiology read reviewed
*Pulse Oximetry
Patient hypoxic: no
*Critical Care Note
Total Time (30-74mins, 75-104mins- exclusive of procedures): Not Applicable
Data Reviewed
Source: patient, records, family and physician
Patient Management
Social determinants of health affecting care: Strong social support
Discussion with other providers: Longitudinal Float Operator (Discussed with vascular surgery)
ED Attending Note
-
Portions of this chart may have been created with voice recognition software.� Occasional wrong word or��sound alike� substitutions may have occurred due to the inherent limitations of voice recognition software.
Discharge Plan
Departure
Patient Disposition: Home (Routine Discharge)
Date of Disposition: 12/16/23
Time of Disposition: 14:56
Patient with high blood pressure during this ER visit?: No
Discharge Problem:
Postoperative hematoma, Cellulitis
Instructions: Bleeding After Surgery, Cellulitis (Skin Infection), Adult ED
Prescriptions:
New
cephalexin 500 mg tablet
500 mg PO QID 10 Days Qty: 40 0RF
No Action
lisinopril-hydrochlorothiazide 20-12.5 mg Tablet
1 tab PO BID
amlodipine 10 mg Tablet
10 mg PO DAILY
hydromorphone 2 mg Tablet
2 mg PO Q6HPRN PRN (Reason: moderate-severe pain) Qty: 10 0RF
acetaminophen [Tylenol] 325 mg Tablet
650 mg PO QIDPRN PRN (Reason: mild pain)
aspirin 81 mg Tablet,Delayed Release (Dr/Ec)
81 mg PO DAILY
Referrals:
Yolanda Vilchis MD [Family Provider] -
Fady Kumar MD [Active] - 12/23/23 11:00 am
Activity Restrictions/Additional Instructions:
Thank you for visiting the Emergency Department at [facility].
1. Please schedule a follow up appointment as directed. Call first thing tomorrow morning to make an appointment.
2. If indicated, please take your medications as instructed and indicated on discharge paperwork.
3. If any of your symptoms do not improve, or persist, or become more severe within 6-12 hours, please return to the emergency department for further care.
4. Please return to the emergency department if you develop a headache, neck pain/stiffness, fever greater than 100.4F, chest pain, shortness of breath, persistent nausea, vomiting, slurred speech, difficulty walking, numbness/tingling, weakness,
signs of infection or any other symptoms that are worrisome to you.
Please call [phone] if you have any questions.
Interventions
Interventions:
*Risk Screen - Suicide Last Done: 12/16/23 11:30
*General Assessment Last Done: 12/16/23 14:45
*Neglect/Abuse Screening Last Done: 12/16/23 14:28
ED- Fall Risk Assessment Last Done: 12/16/23 14:31
*ED COVID-19 Vaccine History Last Done: 12/16/23 11:30
ED-Skin Assessment Last Done: 12/16/23 14:44
Discharge Date and Time
Print Language: SALVADOREAN
[2023-12-16 15:30] VITALS: BP 133/79
--- NOTE | 2023-12-16 15:38 | W.PN.UPDATE ---
Update Note
Progress Note Update
CT scan images reviewed. He has a moderate postoperative likely seroma or old hematoma in the retroperitoneum somewhat surrounding the graft. No active extravasation or signs of active bleeding. I think this all appears contained to the
retroperitoneum. He has a separate what appears to be separate subcutaneous collection that abuts the staple line. I think this is what been draining. Therefore recommend opening a couple julianna to allow better drainage of that. If continued
significant drainage, have asked patient to call office immediately. In that case may require washout of the retroperitoneum. Will cover with antibiotics for now as well. Follow-up within the next week in the office.
== END 2023-12-16 15:31 | disposition home or self-care (01) ==
LOC: EMR 11:26
PROVIDERS: Physician Assistant; EMERGENCY PHYSICIAN Emergency Medicine; FAMILY PHYSICIAN Family Medicine
DX: L76.32 Postprocedural hematoma of skin and subcutaneous tissue following other procedure (principal); L03.311 Cellulitis of abdominal wall; Y83.9 Surgical procedure, unspecified as the cause of abnormal reaction of the patient, or of later complication, without mention of misadventure at the time of the procedure; I10 Essential (primary) hypertension
CPT/HCPCS: 99284; 96374; 71275; 74174; 80053; 85025; 85610; Q9967

== ENCOUNTER 2023-12-26 17:12 | Inpatient (IN) | payer BC, SELFPAY ==
[2023-12-26] VITALS (7 sets, daily range): BP systolic 111–133; BP diastolic 70–84; BMI 38.5
[2023-12-26 14:23] LABS: ALT (SGPT) 23 U/L (0-50); AST (SGOT) 20 U/L (17-59); Albumin 3.4 g/dl (3.5-5.0); Alkaline Phosphatase 78 U/L (38-126); Blood Urea Nitrogen 16 mg/dl (9-20); Calcium 9.1 mg/dl (8.4-10.2); Carbon Dioxide 27 mmol/L (22-30); Chloride 99 mmol/L (98-107); Glucose 126 mg/dl (70-99); Potassium 5.1 mmol/L (3.5-5.1); Sodium 138 mmol/L (135-145); Total Bilirubin 0.3 mg/dl (0.2-1.3); Total Protein 6.9 g/dl (6.3-8.2); eGFR > 60.00
[2023-12-26 14:26] LABS: % Basophils 1.5 % (0-2); % Eosinophils 6.3 % (0-6); % Immature Granulocytes 1.6 % (0-0.5); % Lymphocytes 11.9 % (20.5-51.1); % Monocytes 12.6 % (1.7-9.3); % Neutrophils 66.1 % (42.2-75.2); Absolute Basophils 0.2 10^3/uL (0-0.2); Absolute Eosinophils 0.7 10^3/uL (0-0.7); Absolute Immature Granulocytes 0.2 10^3/uL (0-0.05); Absolute Lymphocytes 1.3 10^3/uL (1.2-3.4); Absolute Monocytes 1.4 10^3/uL (0.1-0.6); Absolute Neutrophils 7.2 10^3/uL (1.4-6.5); Hematocrit 28.2 % (39.0-52.0); Hemoglobin 8.9 g/dL (13.0-18.0); Mean Corp Hgb Conc. 31.6 g/dL (33.0-37.0); Mean Corpuscular Hgb 25.1 pg (27.0-31.0); Mean Corpuscular Volume 79.7 fL (80.0-94.0); Mean Platelet Volume 8.4 fL (7.4-10.4); Nucleated Red Blood Cells % 0 % (-); Platelet Count 966 10^3/uL (130-400); Red Blood Cell Count 3.54 10^6/uL (4.70-6.10); Red Cell Dist. Width 16.1 % (11.5-14.5); White Blood Cell Count 10.8 10^3/uL (4.8-10.8)
--- NOTE | 2023-12-26 15:17 | ED.GENMED ---
History of Present Illness
General
Chief Complaint: Post Operative Problem(s)
Source: patient
Exam Limitations: none
Time Seen by Provider: 12/26/23 14:20
Nursing documentation reviewed up to this point in time: agreed with
History of Present Illness
History of Present Illness:
Patient status post elective AAA repair on December 02, presents to ED secondary to concern for continual drainage from incision site. Patient denies fever or chills. Denies abdominal pain. Denies nausea or vomiting. Denies new trauma. Denies
loss of appetite. Patient is having normal bowel movements.
Past History
Past History
ED Past Medical History: HTN
ED Past Surgical History: Orthopedic
Social History
Tobacco: Non-smoker
Personal:
Living: with family
Employment: Employed
Review of Systems
Review of Systems
Allergies reviewed?: Yes
All Other Systems: ROS reviewed and negative except as documented in HPI and ROS
Constitutional: Reports no symptoms; Denies fever or chills
Respiratory: Reports no symptoms
Cardiac: Reports no symptoms
ABD/GI: Reports no symptoms; Denies abdominal pain, nausea or vomiting
Musculoskeletal: Reports no symptoms
Skin: Reports other (open incision site in abdomen)
Neurological: Reports no symptoms
Phy Exam
Physical Exam
Physical Exam:
Physical Exam
General: no apparent distress, not acutely ill. afebrile
Head: nc/at. eomi
Neck: supple. no meningeal signs.
Abdomen: normal bowel sounds. not tender. julianna noted along LUQ/LLQ with wound dehiscence noted with mild purulent drainage.
Neuro: alert and oriented. no focal neurological deficits
Skin: no rash
Psychiatric: well kept. interactive and cooperative
Extremities: no edema. no calf tenderness.
Course
Orders/Labs/Results
Orders:
Orders
12/26/23 12:39
IV Insert/Care/Rem.- Treatment PRN
12/26/23 13:49
Complete Blood Count/With Diff Urgent
Comprehensive Metabolic Panel Urgent
12/26/23 14:53
Wound Culture [Wound/Abscess/Other Culture] Urgent
ADRIANA Source: Abdomen
Specimen Description:
Date Specimen was Collected: 12/26/23
Time Specimen was Collected: 14:48
12/26/23 14:54
CT Chest/abd/pelvis Angio W/wo Urgent
Comment:
Reason For Exam: Known AAA repair with possible leak
12/26/23 Dinner
Cholesterol Lowering
12/26/23 16:50
Admit/Transfer Patient As Directed
Co-Sign Provider:
Level of Care: Inpatient admission
Assign to:: Telemetry
Physician / Group: Vascular surgery
Diagnosis: cellulitis
Reason for Telemetry: Other
Other Reason for Telemetry: procedural
Date to Stop Telemetry: 12/28/23
Time to Stop Telemetry: 11:00
Reason for Hospitalization: cellulitis
Expected length of stay greater than two midnights?: Yes
ELOS- Estimated Length of Stay in days: 3
I certify the patient meets the requirements for IP care: Yes
12/26/23 16:51
PRN Pain Medication Management As Directed
May give lesser potent ordered pain med per pt: Yes
preference::
Protocol:: Medication orders for pain may be administered in a
manner that supports deferring to patient preference
when the pt is:
-Requesting an ordered lesser potent pain medication.
Least to most potent pain medications are defined as:
acetaminophen < NSAID < tramadol < opioids (morphine,
oxycodone, hydromorphone).
- Requesting a lesser dose of the same medication IF
ORDERED.
- Requesting a less intrusive route of administration
if both routes are prescribed by the provider (PO <
IV).
12/26/23 16:53
Code Status As Directed
Resuscitation Status: Full Code
12/26/23 16:58
Piperacillin/Tazo 3.375 Gram [Zosyn] 3.375 gram in 50 ml IV NOW
Vancomycin 1 Gram/200 ml [Vancocin] 1 gram in 200 ml IV NOW
12/27/23 Breakfast
NPO
Allow oral meds: Yes
Allow clear liquids: No
NPO with Ice Chips: No
12/28/23 11:00
DC Protocol for Telemetry ONCE
Abnormal Lab Results
12/26/23
13:49
RBC 3.54 L 10^6/uL
(4.70-6.10)
Hgb 8.9 L g/dL
(13.0-18.0)
Hct 28.2 L %
(39.0-52.0)
MCV 79.7 L fL
(80.0-94.0)
MCH 25.1 L pg
(27.0-31.0)
MCHC 31.6 L g/dL
(33.0-37.0)
RDW 16.1 H %
(11.5-14.5)
Plt Count 966 H 10^3/uL
(130-400)
Abs Immat Gran (auto) 0.2 H 10^3/uL
(0-0.05)
Absolute Neuts (auto) 7.2 H 10^3/uL
(1.4-6.5)
Absolute Monos (auto) 1.4 H 10^3/uL
(0.1-0.6)
Immature Gran % 1.6 H %
(0-0.5)
Lymphocytes % 11.9 L %
(20.5-51.1)
Monocytes % 12.6 H %
(1.7-9.3)
Eosinophils % 6.3 H %
(0-6)
Glucose 126 H mg/dl
(70-99)
Albumin 3.4 L g/dl
(3.5-5.0)
12/26/23 13:49
12/26/23 13:49
Vital Signs
Initial and Last Documented VS:
Initial Vital Signs
Temp Pulse Resp BP Pulse Ox
98.7 F 79 18 133/73 97
12/26/23 12:35 12/26/23 12:35 12/26/23 12:35 12/26/23 12:35 12/26/23 12:35
Last Documented Vital Signs
Temp Pulse Resp BP Pulse Ox
98.9 F 70 17 122/75 94
12/26/23 16:25 12/26/23 18:07 12/26/23 16:25 12/26/23 17:00 12/26/23 18:04
MDM/Problems Addressed
MDM/Problems Addressed:
CTA abdomen pelvis ordered, per vascular surgery recommendation.
Patient evaluated in ED by vascular surgery () - will admit for further evaluation and treatment, including OR wash out of the wound.
*Critical Care Note
Total Time (30-74mins, 75-104mins- exclusive of procedures): Not Applicable
ED Attending Note
-
Portions of this chart may have been created with voice recognition software.� Occasional wrong word or��sound alike� substitutions may have occurred due to the inherent limitations of voice recognition software.
Discharge Plan
Departure
Patient Disposition: Admit
Date of Disposition: 12/26/23
Time of Disposition: 16:59
Presentation/result/management discussed w/ accepting MD/DO:
Condition: Fair
Discharge Problem:
Postoperative wound dehiscence
Interventions
Interventions:
*Risk Screen - Suicide Last Done: 12/26/23 12:35
*Neglect/Abuse Screening Last Done: 12/26/23 12:35
ED-Skin Assessment Last Done: 12/26/23 14:29
--- NOTE | 2023-12-26 15:32 | CON.VAS ---
Consultation
Consultation Request
Date/Time Consultation Performed: 12/26/23 1530
Requesting Provider: Thierry Eugene MD
Performing Provider: Ashley Marie NP-C for Fady Kumar MD
Reason for Consultation: Surgical site drainage
Medical History
-
Chief Complaint: Surgical site drainage
History of Present Illness:
This is a 63 year old male known well to our vascular service as he is s/p open surgical retroperitoneal repair of abdominal aortic aneurysm 12/03/23 who presents to ED with continued drainage from distal end of surgical incision. Patient is without
any complaints of abdominal pain or discomfort. Does not feel lethargic or otherwise ill. Notes no back pain. His noted a low-grade fever of 99. They both feel that the drainage had slowed some, however a visiting nurse felt drainage was to
persistent and recommending ED evaluation. He was seen in the ED on 12/16/23 with same reports and several julianna were removed to allowed continued drainage and patient was started on PO antibiotics. He states tomorrow would be his last dose of PO
cephalexin.
Past Medical History
Past Medical History: HTN and Other (aortic aneurysm)
Past Surgical History: Other (Orthopedic surgeries, Open surgical retroperitoneal repair of abdominal aortic aneurysm with 22 mm x 11 mm bifurcated Hemashield dacron graft 12/03/23)
Social History
Tobacco: Non-Smoker
Alcohol: None
Personal:
Living: With Family
Allergies / Home Medications
Allergy/AdvReac Type Severity Reaction Status Date / Time
No Known Allergies Allergy Verified 12/16/23 11:34
�Medication �Instructions �Recorded �Confirmed �Type
amlodipine 10 mg tablet 10 mg PO DAILY Blood Pressure 11/24/23 12/26/23 History
lisinopril 20 1 tab PO BID Blood Pressure 11/24/23 12/26/23 History
mg-hydrochlorothiazide 12.5 mg
tablet
hydromorphone 2 mg tablet 2 mg PO Q6HPRN PRN moderate-severe 12/06/23 12/26/23 Rx
pain #10 tabs
acetaminophen 325 mg tablet 650 mg PO QIDPRN PRN mild pain 12/16/23 12/26/23 History
(Tylenol)
aspirin 81 mg tablet,delayed 81 mg PO DAILY 12/16/23 12/26/23 History
release
cephalexin 500 mg tablet 500 mg PO QID 10 days #40 tabs 12/16/23 12/26/23 Rx
Review of Systems
-
History Source: Patient
Constitutional: Reports Fever
EENT: Reports No Symptoms
Respiratory: Reports No Symptoms
Cardiac: Reports No Symptoms
Vascular: Denies Leg Pain / Claudication, Numbness or Tingling
Abdomen/GI: Reports No Symptoms
: Reports No Symptoms
Musculoskeletal: Reports No Symptoms
Skin: Reports Other (Small open area of distal surgical incision with drainage, nonfoul smelling and serosanguineous)
Neurological: Reports No Symptoms
Endocrine: Reports No Symptoms
Physical Exam
Vital Signs
Temp Pulse Resp BP Pulse Ox
99.5 F 71 17 111/71 94
12/26/23 15:01 12/26/23 15:01 12/26/23 15:01 12/26/23 15:01 12/26/23 15:01
Lab Results
12/26/23 13:49
12/26/23 13:49
Physical Exam
General: No Apparent Distress and Comfortable
HEENT: Normocephalic, Anicteric and Atraumatic
Respiratory: Non Labored Respirations
Cardiac: Negative JVD
GI: Soft, Non Tender and Non Distended
Musculoskeletal: No Edema
Skin: Warm and Dry
Neuro: AO x 3
Pulses: Bilateral Femoral: +2, Bilateral Dorsalis Pedis: +2 and Bilateral Posterior Tibial: +2
Assessment / Plan
-
Assessment: 63 year old male with continued drainage from distal surgical incision concerning for infection
Plan:
Reviewed CT scan with attending, appears again to have a fluid collection around the graft and extending laterally and in the retroperitoneum. More circumscribed now than it was before and appears to be slightly smaller than it was before on the
last CT scan. Likely represents old hematoma. Does not definitively appear to connect to the subcutaneous tissues. Prior subcutaneous pocket of fluid is completely drained and eliminated now. There is no evidence of subcutaneous collection on
current scan.
Unclear if there is subtle infection, would recommend at this point washout of the subcutaneous tissues. And if evidence of deep or infection, then washout of the retroperitoneum as well. In that case if purulent drainage is noted, then we will
have to determine and decide definitively what to do with graft.
IV antibiotics initiated for concern of possible infection
NPO at midnight
--- NOTE | 2023-12-26 16:46 | W.PN.UPDATE ---
Update Note
Progress Note Update
Seen and examined in emergency room. See full consultation. Visiting nurse had called the office and was concerned about the drainage appearance from his incision site. Was still being packed. Patient is without any complaints of abdominal pain
or discomfort. Does not feel lethargic or otherwise ill. Notes no back pain. His noted a low-grade fever of 99. They both feel that the drainage had slowed some. On exam his abdomen is soft. His incision site is intact and no significant
erythema. No tenderness. Small opening with some serous and potentially seropurulent (cannot say for sure that is definitive purulence and not some subcutaneous fatty debris) drainage on dressing. I reviewed his CT scan. His graft looks good.
Appears again to have a fluid collection around the graft and extending laterally and in the retroperitoneum. More circumscribed now than it was before and appears to be slightly smaller than it was before on the last CT scan. Likely represents
old hematoma. Does not definitively appear to connect to the subcutaneous tissues. Prior subcutaneous pocket of fluid is completely drained and eliminated now. I do not see any subcutaneous collection on current scan. Plan/continue drainage.
Unclear if there is subtle infection. I am not sure that the retroperitoneal collection is infected however. Would recommend at this point washout. At least of the subcutaneous tissues. And if evidence of deep or infection, then washout of the
retroperitoneum as well. In that case if purulent drainage is noted, then we will have to determine and decide definitively what to do with graft. Would elect to try to push graft preservation if we can. But obviously if graft is bathing and
purulent collection we will have to decide otherwise. I think any vascular reconstruction would be challenging in him. Based on his habitus and his risk factors. Discussed with him and his all these factors and potentials. They understand
all. Agree to proceed with washout for tomorrow.
[2023-12-26] MEDS: ZOSYN 50 IV (17:18)
[2023-12-26] MEDS: VANCOCIN 200 IV ×2 (17:58→20:53)
--- NOTE | 2023-12-26 20:34 | PHA.VAN.IN ---
Assessment
- Assessment
Renal Function: Appears similar to baseline
Concomitant Antimicrobials: ZOSYN
- Previous Dosing Experience
Previous Regimen: NONE
AUC Dosing Plan
- Dosing Variables
Dosing Weight (kg): 104.9
Dosing CrCl (ml/min): 100
Vd coefficient (L/kg): 0.6
- Empiric Dosing
Initial / Loading Dose: 2GM
Maintenance Regimen: 1250MG IV Q12H
Estimated AUC (mcg*h/mL): 484
Estimated Peak (mcg*h/mL): 30.6
Estimated Trough (mcg/ml): 12.2
Estimated Half Life (H): 7.9
Pharmacokinetics Vancomycin I
- -
Patient Age: 63
Patient Sex: Male
Vancomycin Day #: 1
Indication: Skin And Soft Tissue (INCISION SITE INFECTION)
Requesting Provider: LESIA
Height / Weight:
Height 5 ft 5 in
Actual Weight 104.871 kg
- Vital Signs / Lab Results
Temp Pulse Resp BP Pulse Ox
98.9 F 99 18 128/84 94
12/26/23 19:37 12/26/23 19:37 12/26/23 19:37 12/26/23 19:37 12/26/23 19:37
Lab Results - Hematology
12/26/23
13:49
WBC 10.8
Lab Results - Chemistry
12/26/23
13:49
BUN 16
Creatinine 0.7
Albumin 3.4 L
Microbiology Results
12/26/23 14:53 Gram Stain - Preliminary
Abdomen
[2023-12-26] MEDS: ORETIC PO ×2 (20:54→21:45)
[2023-12-26] MEDS: HEPARIN 5000 UNITS SC (20:54)
[2023-12-26] MEDS: ZESTRIL 20 MG PO (20:54)
[2023-12-26] MEDS: TYLENOL 650 MG PO (22:52)
[2023-12-27] VITALS (20 sets, daily range): BP systolic 104–135; BP diastolic 59–75
[2023-12-27] MEDS: ZOSYN 50 IV ×4 (00:20→17:01)
--- NOTE | 2023-12-27 02:48 | PTCARENOTE ---
confirmed with Nsg document control supervisor that patient is scheduled for surgery 12/27, diet ordered changed from NPO. Pt was made aware.
[2023-12-27 05:28] LABS: Hematocrit 28.5 % (39.0-52.0); Hemoglobin 9.2 g/dL (13.0-18.0); Mean Corp Hgb Conc. 32.3 g/dL (33.0-37.0); Mean Corpuscular Hgb 26.2 pg (27.0-31.0); Mean Corpuscular Volume 81.2 fL (80.0-94.0); Mean Platelet Volume 8.7 fL (7.4-10.4); Platelet Count 906 10^3/uL (130-400); Red Blood Cell Count 3.51 10^6/uL (4.70-6.10); Red Cell Dist. Width 16.5 % (11.5-14.5); White Blood Cell Count 11.1 10^3/uL (4.8-10.8)
[2023-12-27 05:37] LABS: APTT 39.1 Sec (23.4-35.0)
[2023-12-27 05:55] LABS: Blood Urea Nitrogen 14 mg/dl (9-20); Calcium 8.7 mg/dl (8.4-10.2); Carbon Dioxide 27 mmol/L (22-30); Chloride 97 mmol/L (98-107); Estimated Creatinine Clearance 122 ml/min; Glucose 88 mg/dl (70-99); Potassium 5.3 mmol/L (3.5-5.1); Sodium 137 mmol/L (135-145); eGFR > 60.00
[2023-12-27] MEDS: VANCOCIN 275 MG IV ×2 (06:11→17:55)
--- NOTE | 2023-12-27 06:16 | PTCARENOTE ---
Pt reported he takes his scheduled Lisinopril/HCTZ once a day @ home in the morning. Pt is aware that the order is for BID but states ' he takes 2 of them in morning and does not take them at night.' I will inform oncoming RN of the above mention
and review with MD in morning.
[2023-12-27] MEDS: ZESTRIL 20 MG PO ×2 (08:00→20:06)
[2023-12-27] MEDS: ORETIC 12.5 MG PO ×2 (08:00→20:07)
[2023-12-27] MEDS: ASPIR LOW (ENTERIC COATED) 81 MG PO (08:00)
[2023-12-27] MEDS: NORVASC 10 MG PO (08:00)
[2023-12-27] MEDS: HEPARIN 5000 UNITS SC ×2 (08:01→20:07)
--- NOTE | 2023-12-27 10:50 | PHA.VAN.FU ---
Vancomycin Assessment / Plan
- Assessment
Renal Function: Stable
WBC's are: Trending Up (10.8->11.1)
In the past 24 hrs, patient has been: Afebrile
Concomitant Antimicrobials: piperacillin/tazo
- Dosing Plan
Continue: vancomycin 1250 mg q12h - first dose 12/26 599
- Monitoring Plan
No level(s) ordered at this time: consider levels when pt nears steady state
- Follow Up
Pharmacy will continue to follow.
Vancomycin Follow UP
- -
Patient Age: 63
Patient Sex: Male
Vancomycin Day #: 2
Indication: Skin And Soft Tissue (INCISION SITE INFECTION)
Requesting Provider: LESIA
Height / Weight:
Height 5 ft 5 in
Actual Weight 104.871 kg
Pertinent Past Medical History: BMI 38.5; s/p AAA repair 12/02
- Vital Signs / Lab Results
Temp Pulse Resp BP Pulse Ox
99.0 F 74 24 114/68 93
12/27/23 10:35 12/27/23 10:30 12/27/23 10:30 12/27/23 10:30 12/27/23 10:35
Lab Results - Hematology
12/26/23 12/27/23
13:49 04:35
WBC 10.8 11.1 H
Lab Results - Chemistry
12/26/23 12/27/23
13:49 04:35
BUN 16 14
Creatinine 0.7 0.7
Estimated Creat Clear 122
Albumin 3.4 L
Microbiology Results
12/26/23 14:53 Gram Stain - Preliminary
Abdomen
--- NOTE | 2023-12-27 10:52 | PTCARENOTE ---
Patient received from PACU in bed; Patient on room air with oxygen saturation 92%; Wound vac to abdomen with black foam intact, area soft to palpation, no bleeding, suction set to 125mmHg per order; Patient denies pain at this time; Patient denies
nausea/vomiting at this time; Bed in lowest position, wheels locked; Call choudhary within reach; Spouse at bedside; Assessment ongoing
[2023-12-27 12:36] LABS: Potassium 5.1 mmol/L (3.5-5.1)
--- NOTE | 2023-12-27 13:10 | CM ---
CM reviewed medical records. Met with patient and family in room. Patient confirmed demographics. Patient lives independently with his . Patient is known to [facility] and was current with them up until this admission. Patient denies history of SNF>
Patient uses a walker for ambulation. Patient has medication coverage and uses [facility]. Patient is active with his PCP>
CM sent referral via [facility] to [facility].
PLAN: Home with [facility]
--- NOTE | 2023-12-27 16:55 | PTCARENOTE ---
Patient ordered site checks post abdominal washout; Site checks at 1100, 1115, 1130, and 1145 with negative pressure wound therapy in place at 125mmHg, black foam in place with tegaderm, no bleeding around site noted, soft to palpation, local
erythema present, no hematoma noted; Site checks at 1215 and 1245 with negative pressure wound therapy in place at 125mmHg, black foam in place with tegaderm, no bleeding around site noted, soft to palpation, local erythema present, no hematoma
noted; Site checks at 1345, 1445, 1545, and 1645 with negative pressure wound therapy in place at 125mmHg, black foam in place with tegaderm, no bleeding around site noted, soft to palpation, local erythema present, no hematoma noted
[2023-12-27] MEDS: TYLENOL 650 MG PO (20:07)
[2023-12-28] MEDS: ZOSYN 50 IV ×5 (00:15→23:49)
[2023-12-28 03:16] VITALS: BP 140/88
[2023-12-28] MEDS: VANCOCIN 275 MG IV ×2 (06:17→18:06)
[2023-12-28 06:48] LABS: APTT 40.5 Sec (23.4-35.0); INR 1.28; PT 15.8 Sec (11.4-14.6)
[2023-12-28 07:06] LABS: Blood Urea Nitrogen 15 mg/dl (9-20); Calcium 8.9 mg/dl (8.4-10.2); Carbon Dioxide 29 mmol/L (22-30); Chloride 98 mmol/L (98-107); Estimated Creatinine Clearance 107 ml/min; Glucose 120 mg/dl (70-99); Potassium 5.1 mmol/L (3.5-5.1); Sodium 137 mmol/L (135-145); eGFR > 60.00
[2023-12-28 07:08] VITALS: BP 123/68
[2023-12-28] MEDS: ASPIR LOW (ENTERIC COATED) 81 MG PO (07:14)
[2023-12-28] MEDS: ZESTRIL 20 MG PO ×2 (07:14→20:07)
[2023-12-28] MEDS: NORVASC 10 MG PO (07:14)
[2023-12-28] MEDS: HEPARIN 5000 UNITS SC ×2 (07:14→20:07)
[2023-12-28] MEDS: ORETIC 12.5 MG PO ×2 (07:14→20:07)
[2023-12-28 07:21] LABS: Hematocrit 30.3 % (39.0-52.0); Hemoglobin 9.4 g/dL (13.0-18.0); Mean Corpuscular Hgb 25.5 pg (27.0-31.0); Mean Corpuscular Volume 82.3 fL (80.0-94.0); Mean Platelet Volume 8.6 fL (7.4-10.4); Platelet Count 935 10^3/uL (130-400); Red Blood Cell Count 3.68 10^6/uL (4.70-6.10); Red Cell Dist. Width 15.9 % (11.5-14.5); White Blood Cell Count 13.1 10^3/uL (4.8-10.8)
[2023-12-28 11:00] VITALS: BP 130/86
--- NOTE | 2023-12-28 11:09 | PHA.VAN.FU ---
Vancomycin Assessment / Plan
- Assessment
Renal Function: Stable
WBC's are: Trending Up
In the past 24 hrs, patient has been: Afebrile
Concomitant Antimicrobials: piperacillin/tazobactam
- Dosing Plan
Continue: vancomycin 1250 mg q12h
- Monitoring Plan
Peak Level: 2099 - after 4th maint dose
Trough Level: 12/28 529
- Follow Up
Pharmacy will continue to follow.
Vancomycin Follow UP
- -
Patient Age: 63
Patient Sex: Male
Vancomycin Day #: 3
Indication: Skin And Soft Tissue (INCISION SITE INFECTION)
Requesting Provider: LESIA
Height / Weight:
Height 5 ft 5 in
Actual Weight 104.871 kg
Pertinent Past Medical History: BMI 38.5; s/p AAA repair 12/02
- Vital Signs / Lab Results
Temp Pulse Resp BP Pulse Ox
98.2 F 78 15 130/86 96
12/28/23 11:00 12/28/23 11:00 12/28/23 11:00 12/28/23 11:00 12/28/23 11:00
Lab Results - Hematology
12/26/23 12/27/23 12/28/23
13:49 04:35 05:11
WBC 10.8 11.1 H 13.1 H
Lab Results - Chemistry
12/26/23 12/27/23 12/28/23
13:49 04:35 05:11
BUN 16 14 15
Creatinine 0.7 0.7 0.8
Estimated Creat Clear 122 107
Albumin 3.4 L
Microbiology Results
12/27/23 09:54 Anaerobic Culture - Preliminary
Abdomen Culture pending. Anaerobic cultures are examined after 3
days incubation. Additional information to follow.
12/27/23 09:54 Wound Culture - Preliminary
Abdomen Gram Stain - Preliminary
12/26/23 14:53 Wound Culture - Preliminary
Abdomen Gram Stain - Preliminary
--- NOTE | 2023-12-28 11:16 | W.PN.VS ---
Today's Communication / Plan
-
follow cultures
vac change in am
Assessment/Plan
-
s/p washout and vac placement
- cultures negative
- cont antbx
- oob ambulate
- vac change juana
Subjective Data
-
Date of Service: December 28, 2023
looks good
no complaints
feels well
Objective Data
-
Vital Signs
Temp Pulse Resp BP Pulse Ox
98.2 F 78 15 130/86 96
12/28/23 11:00 12/28/23 11:00 12/28/23 11:00 12/28/23 11:00 12/28/23 11:00
Intake and Output
12/27/23 12/28/23 12/29/23
06:59 06:59 06:59
Intake Total 780 / 780 1305 / 1305
Output Total 1150 / 1150 150 / 150
Balance 780 / 780 155 / 155 -150 / -150
Intake:
Oral fluids 480 / 480 480 / 480
IV fluids (Total) 300 / 300 100 / 100
normosol 100 / 100
IV piggybacks 725 / 725
Output:
Urine, Voided 1150 / 1150 150 / 150
Other:
Number of approximated MODERATE 3 2
amounts of urine
Lab Results
12/28/23 05:11
12/28/23 05:11
Calcium 8.9 mg/dl (8.4-10.2) 12/28/23 05:11
Total Bilirubin 0.3 mg/dl (0.2-1.3) 12/26/23 13:49
AST 20 U/L (17-59) 12/26/23 13:49
ALT 23 U/L (0-50) 12/26/23 13:49
Alkaline Phosphatase 78 U/L (38-126) 12/26/23 13:49
Total Protein 6.9 g/dl (6.3-8.2) 12/26/23 13:49
Albumin 3.4 g/dl (3.5-5.0) L 12/26/23 13:49
Physical Exam
-
rrr
ctab
vac in place
abd soft
[2023-12-28 15:00] VITALS: BP 127/73
[2023-12-28 18:30] VITALS: BP 121/72
[2023-12-28] MEDS: TYLENOL 650 MG PO (20:14)
[2023-12-28 21:35] LABS: Vancomycin Peak 26.3 ug/ml (18-26)
[2023-12-28 23:00] VITALS: BP 116/72
[2023-12-29 02:59] VITALS: BP 111/64
[2023-12-29] MEDS: ZOSYN 50 IV ×4 (05:36→23:41)
[2023-12-29] MEDS: VANCOCIN 275 MG IV ×2 (06:08→18:25)
--- NOTE | 2023-12-29 07:43 | WOUNDNOTE ---
WOC RN note: Confirmed with Paulette Mancia Vascular LIBRARY SERVICES ASSISTANT that vascular team with change patient's vac today.
[2023-12-29 07:49] LABS: Vancomycin Trough 14.5 ug/ml (5-20)
[2023-12-29 08:10] VITALS: BP 107/65
[2023-12-29] MEDS: ZESTRIL 20 MG PO ×2 (08:34→20:38)
[2023-12-29] MEDS: HEPARIN 5000 UNITS SC ×2 (08:34→20:35)
[2023-12-29] MEDS: ASPIR LOW (ENTERIC COATED) 81 MG PO (08:34)
[2023-12-29] MEDS: ORETIC 12.5 MG PO ×2 (08:34→20:38)
[2023-12-29] MEDS: NORVASC 10 MG PO (08:34)
[2023-12-29] MEDS: TYLENOL 650 MG PO ×2 (08:35→18:27)
--- NOTE | 2023-12-29 08:54 | VNURNOTE ---
Chart reviewed. Patient is current with [facility] nursing. Will continue to follow hospital course and DC plans.
--- NOTE | 2023-12-29 09:06 | PHA.VAN.FU ---
Vancomycin Assessment / Plan
- Assessment
Renal Function: Stable
WBC's are: Trending Up
In the past 24 hrs, patient has been: Afebrile
Concomitant Antimicrobials: piperacillin/tazobactam
- Assessment - Therapeutic Drug Monitoring
Extrapolated Cmax (mcg/mL): 29.7
Peak level was drawn: Appropriately
Extrapolated Cmin (mcg/mL): 13.1
Trough Drawn: Appropriately
Levels were drawn: At steady state
Calculated AUC (mcg*h/mL): 491
Calculated ke: 0.0777
Calculated half life (H): 8.9
Calculated Vd (L): 65.53
Calculated Vanc CL (ml/min): 84.82
- Dosing Plan
Continue: vancomycin 1250 mg q12h
- Monitoring Plan
Level(s) appropriate: Recheck trough at minimum of weekly intervals, Repeat sooner for changes in renal function or clinical status
- Follow Up
Pharmacy will continue to follow.
Vancomycin Follow UP
- -
Patient Age: 63
Patient Sex: Male
Vancomycin Day #: 4
Indication: Skin And Soft Tissue (INCISION SITE INFECTION)
Requesting Provider: LESIA
Height / Weight:
Height 5 ft 5 in
Actual Weight 104.871 kg
Pertinent Past Medical History: BMI 38.5; s/p AAA repair 12/02
- Vital Signs / Lab Results
Temp Pulse Resp BP Pulse Ox
98.3 F 81 16 107/65 94
12/29/23 08:10 12/29/23 08:10 12/29/23 08:10 12/29/23 08:10 12/29/23 08:10
Lab Results - Hematology
12/26/23 12/27/23 12/28/23
13:49 04:35 05:11
WBC 10.8 11.1 H 13.1 H
Lab Results - Chemistry
12/26/23 12/27/23 12/28/23
13:49 04:35 05:11
BUN 16 14 15
Creatinine 0.7 0.7 0.8
Estimated Creat Clear 122 107
Albumin 3.4 L
Microbiology Results
12/27/23 09:54 Anaerobic Culture - Preliminary
Abdomen Culture pending. Anaerobic cultures are examined after 3
days incubation. Additional information to follow.
12/27/23 09:54 Wound Culture - Preliminary
Abdomen Gram Stain - Preliminary
12/26/23 14:53 Wound Culture - Preliminary
Abdomen Gram Stain - Preliminary
Therapeutic Drug Monitoring
Vancomycin Peak 26.3 ug/ml (18-26) H 12/28/23 21:10
Vancomycin Trough 14.5 ug/ml (5-20) 12/29/23 04:50
[2023-12-29 11:20] VITALS: BP 117/71
--- NOTE | 2023-12-29 11:46 | W.PN.VS ---
Addendum entered and electronically signed by Michael De La Rosa III, MD 12/29/23 16:36:
This patient was seen and examined with CHERYL Cardoza. I agree with the history and physical exam as well as the assessment and plan.
Signed:
Michael De La Rosa III, MD
[facility] Vascular Surgery
[phone] (etpy)
Original Note:
Today's Communication / Plan
-
Patient seen at bedside this a.m. Dr. De La Rosa
Assessment/Plan
-
s/p washout and vac placement
-Wound VAC changed at bedside this a.m.
-cont antbx until cultures finalized
-Case management consult -Home wound VAC/VN
-oob/ambulate
Subjective Data
-
Date of Service: December 29, 2023
Patient seen at bedside this a.m. with Dr. De La Rosa. Patient offers no complaints at this time. No events overnight.
Objective Data
-
Vital Signs
Temp Pulse Resp BP Pulse Ox
98.3 F 81 16 107/65 94
12/29/23 08:10 12/29/23 08:10 12/29/23 08:10 12/29/23 08:10 12/29/23 08:10
Intake and Output
12/28/23 12/29/23 12/30/23
06:59 06:59 06:59
Intake Total 1305 / 1305 1840 / 1840
Output Total 1150 / 1150 1625 / 1625
Balance 155 / 155 215 / 215
Intake:
Oral fluids 480 / 480 1440 / 1440
IV fluids (Total) 100 / 100
normosol 100 / 100
IV piggybacks 725 / 725 400 / 400
Output:
Drain Output (Total) 325 / 325
Left Lower Abdomen Hemovac 325 / 325
Urine, Voided 1150 / 1150 1300 / 1300
Other:
Number of approximated MODERATE 2
amounts of urine
Lab Results
12/28/23 05:11
12/28/23 05:11
Calcium 8.9 mg/dl (8.4-10.2) 12/28/23 05:11
Total Bilirubin 0.3 mg/dl (0.2-1.3) 12/26/23 13:49
AST 20 U/L (17-59) 12/26/23 13:49
ALT 23 U/L (0-50) 12/26/23 13:49
Alkaline Phosphatase 78 U/L (38-126) 12/26/23 13:49
Total Protein 6.9 g/dl (6.3-8.2) 12/26/23 13:49
Albumin 3.4 g/dl (3.5-5.0) L 12/26/23 13:49
Physical Exam
-
AAOX3
No tachypnea
No tachycardia
Abd soft
Surgical site image below-good granulation tissue, scant drainage
--- NOTE | 2023-12-29 11:52 | CM ---
Reviewed the chart notes and spoke with the patient at the bedside. Patient plans to discharge to home with resumption of [facility] VN services and wound vac. Wound vac dressing changed today by vascular. CM continues to be available to patient/family
and is monitoring medical plan for needs at discharge.
Plan: Discharge to home with resumption of [facility] VN and wound vac.
--- NOTE | 2023-12-29 14:53 | WOUNDNOTE ---
WOC RN note: Faxed Ready correction vac request to Oksana Neri from [facility]. She will notify this credit underwriter when approved. Updated CM Gayle Lobato.
[2023-12-29 15:58] VITALS: BP 126/78
--- NOTE | 2023-12-29 16:42 | WOUNDNOTE ---
WOC RN note: Notified Oksana Neri from [employer] to contact Flakita Epperson tomorrow when home ready vac as been approved.
--- NOTE | 2023-12-29 17:24 | WOUNDNOTE ---
WOC RN note: Received an email from Yulisa from [employer] indicating patient's home ready care vac was approved. Message left for Flakita Epperson. TORRES RN who is working tomorrow. Ready jail vac in wound/ostomy office. Connor texted Vascular PA
Ashley Marie re: home vac was approved. Vascular Pa's have left for the day.
[2023-12-29 19:21] VITALS: BP 105/69
--- NOTE | 2023-12-29 22:38 | PTCARENOTE ---
Pt pleasant and cooperative with care, able to make needs known, wound vac patent with cont @125mm negative pressure.
[2023-12-29 23:01] VITALS: BP 115/72
[2023-12-30 03:39] VITALS: BP 135/89
[2023-12-30] MEDS: ZOSYN 50 IV ×4 (05:40→23:31)
[2023-12-30] MEDS: VANCOCIN 275 MG IV ×2 (06:22→17:00)
[2023-12-30 07:20] LABS: Hematocrit 30.8 % (39.0-52.0); Hemoglobin 9.6 g/dL (13.0-18.0); Mean Corp Hgb Conc. 31.2 g/dL (33.0-37.0); Mean Corpuscular Hgb 25.7 pg (27.0-31.0); Mean Corpuscular Volume 82.4 fL (80.0-94.0); Mean Platelet Volume 8.6 fL (7.4-10.4); Platelet Count 894 10^3/uL (130-400); Red Blood Cell Count 3.74 10^6/uL (4.70-6.10); Red Cell Dist. Width 16.3 % (11.5-14.5); White Blood Cell Count 9.9 10^3/uL (4.8-10.8)
[2023-12-30 07:32] LABS: Blood Urea Nitrogen 17 mg/dl (9-20); Calcium 8.9 mg/dl (8.4-10.2); Carbon Dioxide 29 mmol/L (22-30); Chloride 97 mmol/L (98-107); Estimated Creatinine Clearance 107 ml/min; Glucose 77 mg/dl (70-99); Potassium 4.9 mmol/L (3.5-5.1); Sodium 138 mmol/L (135-145); eGFR > 60.00
[2023-12-30 07:53] VITALS: BP 134/83
--- NOTE | 2023-12-30 08:16 | W.PN.VS ---
Addendum entered and electronically signed by Michael De La Rosa III, MD 12/30/23 10:27:
This patient was seen and examined with CHERYL Cardoza. I agree with the history and physical exam as well as the assessment and plan. I have the following additions:
Follow-up on cultures
Signed:
Michael De La Rosa III, MD
[facility] V[facility] Surgery
[phone] (cell)
Original Note:
Today's Communication / Plan
-
Seen and assessed with Dr. De La Rosa
Assessment/Plan
-
s/p washout and vac placement
-Continue wound VAC, if patient able to discharge today will place home VAC
-cont antbx until cultures finalized*
-Home wound VAC/VN approved
-oob/ambulate
Subjective Data
-
Date of Service: December 30, 2023
Patient seen at bedside this day with Dr. De La Rosa. No events overnight. Wound VAC intact with no leak
Objective Data
-
Vital Signs
Temp Pulse Resp BP Pulse Ox
98.6 F 73 19 134/83 96
12/30/23 07:53 12/30/23 07:53 12/30/23 07:53 12/30/23 07:53 12/30/23 07:53
Intake and Output
12/29/23 12/30/23 12/31/23
06:59 06:59 06:59
Intake Total 1840 / 1840 1535 / 1535
Output Total 1625 / 1625 1400 / 1400
Balance 215 / 215 135 / 135
Intake:
Oral fluids 1440 / 1440 1160 / 1160
IV piggybacks 400 / 400 375 / 375
Output:
Drain Output (Total) 325 / 325
Left Lower Abdomen Hemovac 325 / 325
Urine, Voided 1300 / 1300 1400 / 1400
Lab Results
12/30/23 05:06
12/30/23 05:06
Calcium 8.9 mg/dl (8.4-10.2) 12/30/23 05:06
Total Bilirubin 0.3 mg/dl (0.2-1.3) 12/26/23 13:49
AST 20 U/L (17-59) 12/26/23 13:49
ALT 23 U/L (0-50) 12/26/23 13:49
Alkaline Phosphatase 78 U/L (38-126) 12/26/23 13:49
Total Protein 6.9 g/dl (6.3-8.2) 12/26/23 13:49
Albumin 3.4 g/dl (3.5-5.0) L 12/26/23 13:49
Physical Exam
-
AAOX3
No tachypnea
No tachycardia
Abd soft
VAC site clean, dry, intact, no leak
Bilateral feet warm and pink
[2023-12-30] MEDS: HEPARIN 5000 UNITS SC ×2 (08:23→20:49)
[2023-12-30] MEDS: ASPIR LOW (ENTERIC COATED) 81 MG PO (08:23)
[2023-12-30] MEDS: ORETIC 12.5 MG PO ×2 (08:24→20:49)
[2023-12-30] MEDS: ZESTRIL 20 MG PO ×2 (08:24→20:49)
[2023-12-30] MEDS: NORVASC 10 MG PO (08:24)
--- NOTE | 2023-12-30 10:33 | CM ---
Reviewed the chart notes and spoke with the patient at the bedside. Wound Vac has been approved. Awaiting on delivery and placement. CM continues to be available to patient/family and is monitoring medical plan for needs at discharge.
Plan: Discharge to home with wound vac and VN services. Patient's spouse will provide transportation home.
--- NOTE | 2023-12-30 10:55 | PN.CDI ---
CDI
- -
CDI:
Physician Documentation Request
Admit Date: 12/26/23 17:12
Dear Doctor/PROGRAM COORDINATOR,
Please review the following and provide your response in the progress notes.
Clinical Indicators:
Pt admitted with s/p open surgical retroperitoneal repair of abdominal aortic aneurysm 12/03/23 who presents to ED with continued drainage from distal end of surgical incision /washout and evacuation of intraabdominal fluid here on 12/25
Hemoglobin per past visit on 11/26/23 14.7
Trended Hemoglobin/Hematocrit below
Laboratory Tests
12/26/23 12/27/23 12/28/23
13:49 04:35 05:11
Hgb 8.9 L 9.2 L 9.4 L
Hct 28.2 L 28.5 L 30.3 L
12/30/23
05:06
Hgb 9.6 L
Hct 30.8 L
Please provide a diagnosis for the above laboratory findings:
Subacute bloodloss anemia ( ongoing from previous surgery )
Other ( please specify)
Use of terms such as suspected, likely, concern for, or probable (associated with a specific diagnosis that is being evaluated, monitored, or treated as if it exists) are acceptable and can be coded in the inpatient setting, when documented at the
time of discharge.
Thank you,
Sherrell Turner RN
CDI Specialist
[employer] [employer]
Please use your independent medical judgment in providing your response.
--- NOTE | 2023-12-30 11:05 | W.PN.UPDATE ---
Update Note
Progress Note Update
CDI:
Physician Documentation Request
Admit Date: 12/26/23 17:12
Please review the following and provide your response in the progress notes.
Clinical Indicators:
Pt admitted with s/p open surgical retroperitoneal repair of abdominal aortic aneurysm 12/03/23 who presents to ED with continued drainage from distal end of surgical incision /washout and evacuation of intraabdominal fluid here on 12/25
Hemoglobin per past visit on 11/26/23 14.7
Trended Hemoglobin/Hematocrit below
Laboratory Tests
12/26/23 12/27/23 12/28/23
13:49 04:35 05:11
Hgb 8.9 L 9.2 L 9.4 L
Hct 28.2 L 28.5 L 30.3 L
12/30/23
05:06
Hgb 9.6 L
Hct 30.8 L
Please provide a diagnosis for the above laboratory findings:
Subacute bloodloss anemia ( ongoing from previous surgery)- 600cc of blood loss intraoperative on prior admission, never required transfusion.
[2023-12-30] MEDS: TYLENOL 650 MG PO ×2 (11:28→20:48)
[2023-12-30 11:49] VITALS: BP 118/71
--- NOTE | 2023-12-30 15:19 | PHA.VAN.FU ---
Vancomycin Assessment / Plan
- Assessment
Renal Function: Stable
WBC's are: WNL
In the past 24 hrs, patient has been: Afebrile
Concomitant Antimicrobials: piperacillin/tazobactam
- Dosing Plan
Continue: Vanc 1250mg Q12H
- Monitoring Plan
Level(s) appropriate: Recheck trough at minimum of weekly intervals, Repeat sooner for changes in renal function or clinical status
Next Level Due (Date): ~01/04
- Follow Up
Pharmacy will continue to follow.
Vancomycin Follow UP
- -
Patient Age: 63
Patient Sex: Male
Vancomycin Day #: 5
Indication: Skin And Soft Tissue
Requesting Provider: Yenni Marie
Pertinent Antimicrobial Allergies:
NKDA
Height / Weight:
Height 5 ft 5 in
Actual Weight 104.871 kg
Pertinent Past Medical History: BMI ~39
- Vital Signs / Lab Results
Temp Pulse Resp BP Pulse Ox
98.3 F 72 16 118/71 97
12/30/23 11:49 12/30/23 11:49 12/30/23 11:49 12/30/23 11:49 12/30/23 11:49
Lab Results - Hematology
12/28/23 12/30/23
05:11 05:06
WBC 13.1 H 9.9
Lab Results - Chemistry
12/28/23 12/30/23
05:11 05:06
BUN 15 17
Creatinine 0.8 0.8
Estimated Creat Clear 107 107
Microbiology Results
12/27/23 09:54 Anaerobic Culture - Preliminary
Abdomen Culture pending. Anaerobic cultures are examined after 3
days incubation. Additional information to follow.
12/27/23 09:54 Wound Culture - Preliminary
Abdomen Gram Stain - Preliminary
12/26/23 14:53 Wound Culture - Final
Abdomen Gram Stain - Final
Therapeutic Drug Monitoring
Vancomycin Peak 26.3 ug/ml (18-26) H 12/28/23 21:10
Vancomycin Trough 14.5 ug/ml (5-20) 12/29/23 04:50
[2023-12-30 15:20] VITALS: BP 117/71
--- NOTE | 2023-12-30 16:09 | WOUNDNOTE ---
"TORRES RN NOTE: Home vac unit applied at 125mmhg. Patient signed proof of delivery form. Teaching done with patient on home vac unit, how to change drainage canister and plug in to charge. Instructed to take all supplies home upon discharge. Nurse "Steven"Debby aware of the above and will bring hospital vac unit to [facility] when discharged. Will notify [employer] of stop date of hospital vac. "
[2023-12-30 23:08] VITALS: BP 109/69
[2023-12-31] MEDS: ZOSYN 50 IV (05:00)
[2023-12-31] MEDS: VANCOCIN 275 MG IV (05:47)
[2023-12-31 08:00] VITALS: BP 114/68
--- NOTE | 2023-12-31 08:30 | PHA.VAN.FU ---
Vancomycin Assessment / Plan
- Assessment
Renal Function: Stable
WBC's are: WNL
In the past 24 hrs, patient has been: Afebrile
Concomitant Antimicrobials: piperacillin/tazobactam
- Dosing Plan
Continue: Vanc 1250mg Q12H
- Monitoring Plan
Level(s) appropriate: Recheck trough at minimum of weekly intervals, Repeat sooner for changes in renal function or clinical status
Next Level Due (Date): ~01/04
- Follow Up
Pharmacy will continue to follow.
Vancomycin Follow UP
- -
Patient Age: 63
Patient Sex: Male
Vancomycin Day #: 6
Indication: Skin And Soft Tissue
Requesting Provider: Yenni Marie
Pertinent Antimicrobial Allergies:
NKDA
Height / Weight:
Height 5 ft 5 in
Actual Weight 104.871 kg
Pertinent Past Medical History: BMI ~39
- Vital Signs / Lab Results
Temp Pulse Resp BP Pulse Ox
98.4 F 76 16 114/68 95
12/31/23 08:00 12/31/23 08:00 12/31/23 08:00 12/31/23 08:00 12/31/23 08:00
Lab Results - Hematology
12/30/23
05:06
WBC 9.9
Lab Results - Chemistry
12/30/23
05:06
BUN 17
Creatinine 0.8
Estimated Creat Clear 107
Microbiology Results
12/27/23 09:54 Anaerobic Culture - Preliminary
Abdomen Culture pending. Anaerobic cultures are examined after 3
days incubation. Additional information to follow.
12/27/23 09:54 Wound Culture - Preliminary
Abdomen Gram Stain - Preliminary
12/26/23 14:53 Wound Culture - Final
Abdomen Gram Stain - Final
Therapeutic Drug Monitoring
Vancomycin Peak 26.3 ug/ml (18-26) H 12/28/23 21:10
Vancomycin Trough 14.5 ug/ml (5-20) 12/29/23 04:50
[2023-12-31] MEDS: ORETIC 12.5 MG PO (08:37)
[2023-12-31] MEDS: ASPIR LOW (ENTERIC COATED) 81 MG PO (08:37)
[2023-12-31] MEDS: HEPARIN 5000 UNITS SC (08:38)
[2023-12-31] MEDS: ZESTRIL 20 MG PO (08:38)
[2023-12-31] MEDS: TYLENOL 650 MG PO (08:38)
[2023-12-31] MEDS: NORVASC 10 MG PO (08:39)
--- NOTE | 2023-12-31 09:30 | WOUNDNOTE ---
[facility] RN note: Changed patient's abdominal wound vac. Wound pink/granular with scant yellow fibrin. No surrounding erythema. Patient tolerated dressing change well. Skin on sacrum and heels intact. Patient ambulated from bed to recliner chair after
dressing changed. Patient instructed home vac alarm trouble shooting and to call VN or [employer] support if the vac loses it's suction that cannot be corrected. Patient stated he knows how to plug in home vac pump and how to change the
canister. Vac supplies in room. Updated MARBELLA Yap. Plan is home with . Patient to follow up with vascular.
--- NOTE | 2023-12-31 09:33 | W.PN.VS ---
Addendum entered and electronically signed by Fady Kumar MD 12/31/23 11:35:
Seen and examined with CHARLIE Mancia and CHARLIE Marie. Agree with findings as noted below. Abdominal VAC in place. No surrounding cellulitis. Plan/as discussed and noted below.
Original Note:
Today's Communication / Plan
-
Seen and assessed with Dr. Kumar
Assessment/Plan
-
s/p washout and vac placement
-Home vac in place
-Stop antibiotics
-VN set up
-Ok for DC later today, hoping cultures will finalize by then
Subjective Data
-
Date of Service: December 31, 2023
Patient seen at bedside this a.m. with Dr. Kumar. Offers no complaints at this time. No events overnight. Home VAC intact with no leak noted.
Objective Data
-
Vital Signs
Temp Pulse Resp BP Pulse Ox
98.4 F 76 16 114/68 95
12/31/23 08:00 12/31/23 08:00 12/31/23 08:00 12/31/23 08:00 12/31/23 08:00
Intake and Output
12/30/23 12/31/23 01/01/24
06:59 06:59 06:59
Intake Total 1535 / 1535 1965 / 1965
Output Total 1400 / 1400 1460 / 1460
Balance 135 / 135 505 / 505
Intake:
Oral fluids 1160 / 1160 1140 / 1140
IV fluids (Total) 75 / 75
IV piggybacks 375 / 375 750 / 750
Output:
Urine, Voided 1400 / 1400 1460 / 1460
Other:
Number of approximated MODERATE 1
amounts of urine
Lab Results
12/30/23 05:06
12/30/23 05:06
Calcium 8.9 mg/dl (8.4-10.2) 12/30/23 05:06
Total Bilirubin 0.3 mg/dl (0.2-1.3) 12/26/23 13:49
AST 20 U/L (17-59) 12/26/23 13:49
ALT 23 U/L (0-50) 12/26/23 13:49
Alkaline Phosphatase 78 U/L (38-126) 12/26/23 13:49
Total Protein 6.9 g/dl (6.3-8.2) 12/26/23 13:49
Albumin 3.4 g/dl (3.5-5.0) L 12/26/23 13:49
Physical Exam
-
AAOX3
No tachypnea
No tachycardia
Abd soft
VAC site clean, dry, intact, no leak- home vac in place
Bilateral feet warm and pink
--- NOTE | 2023-12-31 09:46 | W.[place]-PDMP ---
[place]-PD[place]
-
Checked the [place]- Prescription Drug Monitoring Program website, no red flags identified; safe to proceed with prescription.
--- NOTE | 2023-12-31 10:51 | WOUNDNOTE ---
WOC RN note: Notified [employer] of stop bill date of hospital vac ulta pump of as1 and brain picker (work order # [id number]).
--- NOTE | 2023-12-31 12:33 | CM ---
Reviewed the chart notes. Patient for potential discharge to home today with [facility] VN and wound vac in place. CM continues to be available to patient/family and is monitoring medical plan for needs at discharge.
Plan: Discharge to home with VN services.
--- NOTE | 2023-12-31 13:58 | W.DCSUMMARY ---
Discharge Summary
Discharge Data
Date of Admission: 12/26/23
Date of Discharge: 12/31/23
-
Pending Results: Yes
Additional Pending Results:
Anaerobic wound culture/wound cultures
Hospital Course
Attending: Fady Kumar MD
Consultants: None
Allergies: NKDA
Procedure with date: 1. Washout left flank wound with evacuation of intraabdominal collection. 2. VAC placement less than 50 cm2. on 12/26/[address] Lawrence Dela Cruz
History of present illness: The patient is an 63 -year-old male with multiple medical conditions including: dissection of thoracoabdominal aorta, aortic valve sclerosis, asymptomatic PVCs, and hypertension. Patient underwent open surgical
retroperitoneal repair of abdominal aortic aneurysm with 22 mm x 11 mm bifurcated Hemashield dacron graft on 12/03/[address] Fady Kumar. He presented to ED on 12/26/2023 with reports of continued from distal end of surgical incision. Decision was
made to admit patient, initiate IV antibiotics, and schedule for wash out of surgical incision.
Hospital Course: Briefly, the patient underwent Washout left flank wound with evacuation of intraabdominal collection with VAC placement on 12/27/2023 without complications, and recovered in PACU. Wound cultures obtained in operating room.
Following recovery phase one and two patient was transferred back to medical surgical floor for continued monitoring. POD #1 (12/28/2023) patient without complaints. Cultures to date negative. Continues with intravenous antibiotics. Hemoglobin
remains unchanged at 9.4 from prior blood draws. Hemodynamically stable. POD #2 (12/29/2023) IV antibiotics continued as wound cultures are not finalized yet, however no growth to date. Wound VAC change at bedside without difficulty or incident.
Patient with no complaints. POD #3 (12/30/2023) patient continues with wound VAC therapy. Awaiting home wound VAC delivery. Continuing antibiotics until cultures finalized. No leukocytosis, WBC at 9.9. Patient [place] afebrile. POD #4
(12/31/2023) wound cultures 4 days out without growth, and wound VAC delivered. Stable for discharge to home, given course of IV antibiotics provided during admission coupled with prior p.o. antibiotics, no clinical indication to continue
antibiotics at discharge. Discharge to home on wound VAC with visiting nurse.
Prescriptions and follow up appointment are included in the DC summary hair spring cutter note. All instructions were given to the patient in both written and verbal form and the patient expressed understanding.
Discharge Plan
-
Patient Disposition: Home (Routine Discharge)
Discharge Diagnosis/Procedures: Washout left flank wound with evacuation of intraabdominal collection.
VAC placement
Condition: Good
Diet: As tolerated
Activity: No strenuous activity
Driving Restrictions: Not until seen by your Dr
Bathing Restrictions: OK to Shower
Other Services: VN
Activity Restrictions/Additional Instructions:
Wound Care Instructions
Abdominal wound-Wound vac therapy, use black foam, Change every 48 - 72 hours (i. e. Opgstji-Witwiiqmup-Dlvwkif) and prn if unable to obtain a seal. Low Intensity, Continuous at 125 mmHg. Upon discharge or transfer to another facility, remove VAC
foam and apply NS moistened gauze dressing unless home VAC unit available.
Follow up with vascular surgeon.
Stand Alone Forms: DC Instr - Vascular OR
Referrals:
Rupa Pascual PA-C [Specified Professional Personl] - 01/13/24 9:30 am
Yoladna Vilchis MD [Family Provider] -
Prescriptions:
New
oxycodone 5 mg Tablet
5 mg PO Q4HPRN PRN (Reason: moderate pain) Qty: 7 0RF
Continued
lisinopril-hydrochlorothiazide 20-12.5 mg Tablet
1 tab PO BID
amlodipine 10 mg Tablet
10 mg PO DAILY
acetaminophen [Tylenol] 325 mg Tablet
650 mg PO QIDPRN PRN (Reason: mild pain)
aspirin 81 mg Tablet,Delayed Release (Dr/Ec)
81 mg PO DAILY
Discontinued
hydromorphone 2 mg Tablet
2 mg PO Q6HPRN PRN (Reason: moderate-severe pain) Qty: 10 0RF
cephalexin 500 mg tablet
500 mg PO QID
Discharge Orders:
Discharge Patient (As Directed); Ordered 12/31/23
Ordered By: Ashley Marie
Discharge Date and Time
Print Language: POLISH
[2023-12-31 14:35] VITALS: BP 104/62
--- NOTE | 2023-12-31 16:30 | WOUNDNOTE ---
WOC RN note: Faxed patient signed Proof of home vac delivery form to Oksana Neri from [facility].
== END 2023-12-31 15:31 | disposition home health service (06) | DRG 908 ==
LOC: 2 SOUTH 17:12
PROVIDERS: Emergency Medicine; Nurse Practitioner; Surgery; ADMITTING PHYSICIAN Surgery Vascular Surgery; EMERGENCY PHYSICIAN Emergency Medicine; FAMILY PHYSICIAN Family Medicine
PROC: 0JQ80ZZ Repair Abdomen Subcutaneous Tissue and Fascia, Open Approach (ICD-10-PCS; 2023-12-26)
PROC: 0JD80ZZ Extraction of Abdomen Subcutaneous Tissue and Fascia, Open Approach (ICD-10-PCS; 2023-12-26)
PROC: 0W9F0ZX Drainage of Abdominal Wall, Open Approach, Diagnostic (ICD-10-PCS; 2023-12-26)
PROC: 2W13X6Z Compression of Abdominal Wall using Pressure Dressing (ICD-10-PCS; 2023-12-26)
DX: T81.31XA Disruption of external operation (surgical) wound, not elsewhere classified, initial encounter (principal); D62 Acute posthemorrhagic anemia; L76.34 Postprocedural seroma of skin and subcutaneous tissue following other procedure; I10 Essential (primary) hypertension; I35.8 Other nonrheumatic aortic valve disorders; I49.3 Ventricular premature depolarization; Z98.890 Other specified postprocedural states; Z86.79 Personal history of other diseases of the circulatory system; Z79.82 Long term (current) use of aspirin; Z79.899 Other long term (current) drug therapy
CPT/HCPCS: 71275; 74174; 80048; 80053; 80202; 84132; 85025; 85027; 85610; 85730; 86850; 86900; 86901; 87070; 87075; 87205; 96365; 96367; 99285; Q9967

== ENCOUNTER → 2024-05-17 09:16 | Outpatient (REF) | payer BC, SELFPAY ==
[2024-05-17 12:45] LABS: Blood Urea Nitrogen 22 mg/dl (9-20); Calcium 9.5 mg/dl (8.4-10.2); Carbon Dioxide 30 mmol/L (22-30); Chloride 100 mmol/L (98-107); Glucose 106 mg/dl (70-99); Potassium 4.1 mmol/L (3.5-5.1); Sodium 140 mmol/L (135-145); eGFR > 60.00
== END ==
LOC: HWLAB 09:16
PROVIDERS: ATTENDING PHYSICIAN Surgery Vascular Surgery; FAMILY PHYSICIAN Family Medicine
DX: I71.40 Abdominal aortic aneurysm, without rupture, unspecified (principal)
CPT/HCPCS: 36415; 80048

== ENCOUNTER → 2024-06-10 06:36 | Outpatient (REF) | payer BC, SELFPAY | LOC: RAD 06:36 | PROVIDERS: ATTENDING PHYSICIAN Physician Assistant; FAMILY PHYSICIAN Family Medicine | DX: I71.43 Infrarenal abdominal aortic aneurysm, without rupture (principal); I71.02 Dissection of abdominal aorta; I72.3 Aneurysm of iliac artery | CPT/HCPCS: 71275; 74174; Q9967 ==

== ENCOUNTER → 2024-12-31 09:46 | Outpatient (REF) | payer BC, SELFPAY | LOC: RAD 09:46 | PROVIDERS: ATTENDING PHYSICIAN Surgery Vascular Surgery; FAMILY PHYSICIAN Family Medicine | DX: I71.43 Infrarenal abdominal aortic aneurysm, without rupture (principal) | CPT/HCPCS: 71275; 74174; Q9967 ==